=== PATIENT | female | born 1995 | race Caucasian/White ===

== ENCOUNTER 2020-07-09 14:15 | Outpatient (CLI) | payer BC, SELFPAY ==
[2020-07-09 15:44] LABS: Basophils Percent Auto 0.4 % (0.2-1.2); Eosinophils Absolute Auto 0.1 K/mm3 (0-0.3); Eosinophils Percent Auto 1.4 % (0-4.4); Hematocrit 34.3 % (37.0-47.0); Hemoglobin 11.5 g/dL (12.0-15.0); Immature Granulocyte Absolute 0.08 K/mm3 (0.00-0.031); Immature Granulocyte Percent A 0.8 % (0-0.5); Lymphocytes Absolute Auto 1.82 K/mm3 (0.9-3.2); Lymphocytes Percent Auto 18.1 % (18.3-44.2); Mean Corpuscular HGB Conc 33.5 g/dl (32-36); Mean Corpuscular Hemoglobin 29.3 pg (26-34); Mean Corpuscular Volume 87.3 fl (80-100); Mean Platelet Volume 11.2 fl (7.4-10.4); Monocytes Absolute Auto 0.7 K/mm3 (0.1-0.6); Monocytes Percent Auto 6.9 % (2.6-8.5); Neutrophils Absolute Auto 7.3 K/mm3 (1.3-6.7); Neutrophils Percent Auto 72.4 % (45.5-73.1); Platelet Count Result 288 k/mm3 (150-375); Red Blood Count 3.93 M/mm3 (4.2-5.4); Red Cell Distribution Width 13.2 % (11.5-14.5); White Blood Count 10.1 K/mm3 (4.5-10.0)
[2020-07-09 15:53] LABS: Glucose 1 Hour PP 50gm Dose 86 mg/dL
[2020-07-09 16:34] LABS: HIV 1/2 Ab P24 Ag Result Negative (Negative)
== END 2020-07-09 14:16 | disposition home or self-care (01) ==
LOC: ANHLAB 14:19
PROVIDERS: Visit Provider Obstetrics & Gynecology
DX: Z34.92 Encounter for supervision of normal pregnancy, unspecified, second trimester (principal)
CPT/HCPCS: 36415; 82947; 85025; 86703; G0432

== ENCOUNTER 2020-08-10 13:45 | Outpatient (CLI) | payer BC, SELFPAY ==
[2020-08-10 15:46] LABS: Hepatitis B Surface Antigen Negative (Negative); Rubella IgG Antibody 93.9 IU/ML
[2020-08-11 10:54] LABS: Rapid Plasma Reagin Non-Reactive (NonReactive)
[2020-08-13 11:13] LABS: CMV IgG Antibody <0.60 U/mL (<0.60)
[2020-08-13 14:10] LABS: Varicella IgM Antibody <=0.90 (<=0.90)
== END 2020-08-10 13:46 | disposition home or self-care (01) ==
LOC: ANHLAB 13:47
PROVIDERS: Visit Provider Obstetrics & Gynecology
DX: Z34.93 Encounter for supervision of normal pregnancy, unspecified, third trimester (principal); Z3A.00 Weeks of gestation of pregnancy not specified
CPT/HCPCS: 36415; 85461; 86592; 86644; 86747; 86762; 86787; 87086; 87340

== ENCOUNTER 2020-09-07 23:56 | Inpatient (IN) | payer BC, SELFPAY ==
[2020-09-08] VITALS (34 sets, daily range): BP systolic 94–136; BP diastolic 67–89; PULSE 62–114; RESP 16–18; TEMP 36.7–37.2; O2SAT 99–100; BMI 29.3
--- NOTE | 2020-09-08 00:47 | LDADM ---
This patient, Delia Aranda, was admitted to Labor/Delivery/Recovery 106 on 09/07/20 at 23:56. Plans for labor, pain management and were discussed with patient. Patient/family oriented to hospital policies and general routines including ID bracelet, bed and alarms, visiting hours, pain management, procedures, bathroom and other care routines, personal items, smoking policy, room service/diet and guest tray routines, security routines, and visiting hours. Patient/Family are encouraged to report perceived risks to care and to ask questions if they do not understand what they are told or what they should do. See OBIX for further documentation.
--- NOTE | 2020-09-08 00:49 | WPDANESEPP ---
Anes - Eval Pre Procedure Procedure: Labor epidural Date/Time: 09/08/20 00:49 Surgeon: Trell Preop Diagnosis: Abd pain with contractions Pre Op Diagnosis: Ctx Patient Data Age: 24 Gender: F Height: Weight: Last Vital Signs Pulse 80 09/08/20 00:31 BP 121/89 09/08/20 00:31 Allergies Allergy/AdvReac Type Severity Reaction Status Date / Time No Known Allergies Allergy Verified 08/31/20 15:38 Home Medications Medication Instructions Recorded Confirmed Type PNV cmb#95-ferrous fumarate-FA 1 tablet PO DAILY 08/31/20 08/31/20 History [] Laboratory Tests 09/08/20 09/08/20 00:28 00:28 WBC Pending RBC Pending Hgb Pending Hct Pending MCV Pending MCH Pending MCHC Pending RDW Pending Plt Count Pending MPV Pending Immature Gran % (Auto) Pending Neut % (Auto) Pending Lymph % (Auto) Pending [place] % (Auto) Pending Eos % (Auto) Pending Baso % (Auto) Pending Lymph # (Auto) Pending [place] # (Auto) Pending Eos # (Auto) Pending Baso # (Auto) Pending Abs Immat Gran (auto) Pending Absolute Neuts (auto) Pending Absolute Nucleated RBC Pending Nucleated RBC % Pending RPR Pending Patient hx anesthesia problems: none Family hx anesthesia problems: none PMFSH Past Medical History Medical History (Updated 09/08/20 @ 00:50 by Taurus Whalen CRNA) Overweight (BMI 25.0-29.9) and not yet delivered Family History Family History Other No pertinent family history Social History Social History Substance use: never Gender identity (if verbalized by the patient): Female Spiritual care concerns: No Exam Day of Procedure 09/08/20 00:49 Patient weight: overweight Airway: Mallampati scale Neurological: alert and oriented
[2020-09-08] MEDS: LACTATED RINGERS 1,000 ML 125 ML IV CONT (00:50)
[2020-09-08 01:07] LABS: Basophils Percent Auto 0.4 % (0.2-1.2); Eosinophils Absolute Auto 0.1 K/mm3 (0-0.3); Eosinophils Percent Auto 1.1 % (0-4.4); Hematocrit 33.1 % (37.0-47.0); Hemoglobin 10.7 g/dL (12.0-15.0); Immature Granulocyte Absolute 0.05 K/mm3 (0.00-0.031); Immature Granulocyte Percent A 0.4 % (0-0.5); Lymphocytes Absolute Auto 2.66 K/mm3 (0.9-3.2); Lymphocytes Percent Auto 23.5 % (18.3-44.2); Mean Corpuscular HGB Conc 32.3 g/dl (32-36); Mean Corpuscular Hemoglobin 25.6 pg (26-34); Mean Corpuscular Volume 79.2 fl (80-100); Mean Platelet Volume 12.6 fl (7.4-10.4); Monocytes Absolute Auto 0.7 K/mm3 (0.1-0.6); Monocytes Percent Auto 6.5 % (2.6-8.5); Neutrophils Absolute Auto 7.7 K/mm3 (1.3-6.7); Neutrophils Percent Auto 68.1 % (45.5-73.1); Platelet Count Result 258 k/mm3 (150-375); Red Blood Count 4.18 M/mm3 (4.2-5.4); White Blood Count 11.3 K/mm3 (4.5-10.0)
[2020-09-08] MEDS: OXYTOCIN 30 UNITS/NS 500 ML 30 UNITS/500 ML BAG 999 UNITS IV CONT (01:40)
--- NOTE | 2020-09-08 01:58 | PM.IMHP ---
H&P: HPI History of Present Illness Date/Time: 09/08/20 01:58 Chief complaint: Ctx Narrative: Delia Aranda is a 24 yo @ 37.1wks (BRODY 09/28/20) who presented in active labor; found to be 5cm desiring epidural. After epidural, rapidly progressed from 8 to complete. Her is complicated by: - Short interval ; last delivery 09/2019 Review of Systems Constitutional: Constitutional: Denies chills and Denies fever(s) Eyes: Eyes: Denies blurry vision Cardiovascular: Cardiovascular: Denies chest pain and Denies rapid heart rate Respiratory: Respiratory: Denies cough and Denies dyspnea Gastrointestinal: Gastrointestinal: Reports abdominal pain, Denies nausea and Denies vomiting Genitourinary: Genitourinary: Denies vaginal discharge Neurologic: Denies headache(s) Psychiatric: Psychiatric: Denies anxiety and Denies depression [facility], [facility] Past Medical History Medical History Overweight (BMI 25.0-29.9) and not yet delivered Family History Family History Other No pertinent family history Social History Social History Smoking status: Never smoker Substance use: never Gender identity (if verbalized by the patient): Female Spiritual care concerns: No Meds Home Medications and Allergies Home Medications Medication Instructions Recorded Confirmed Type PNV cmb#95-ferrous fumarate-FA 1 tablet PO DAILY 08/31/20 09/08/20 History [] Allergies Allergy/AdvReac Type Severity Reaction Status Date / Time No Known Allergies Allergy Verified 08/31/20 15:38 Vital Signs Vital Signs - 24 hr 09/08/20 00:16 09/08/20 00:31 09/08/20 00:53 Pulse Rate 92 80 Blood Pressure 120/72 121/89 Pulse Oximetry 99 09/08/20 00:54 09/08/20 00:56 09/08/20 00:58 Pulse Rate 101 H 93 85 Blood Pressure 118/87 128/82 117/82 Pulse Oximetry 100 09/08/20 00:59 09/08/20 01:01 09/08/20 01:03 Pulse Rate 94 98 98 Blood Pressure 119/77 122/78 125/78 Pulse Oximetry 100 09/08/20 01:06 09/08/20 01:07 09/08/20 01:08 Pulse Rate 92 88 90 Blood Pressure 121/75 118/71 116/68 Pulse Oximetry 99 09/08/20 01:11 09/08/20 01:13 09/08/20 01:16 Pulse Rate 86 81 87 Blood Pressure 122/78 123/82 123/77 Pulse Oximetry 99 09/08/20 01:18 09/08/20 01:23 09/08/20 01:26 Pulse Rate 84 114 H Blood Pressure 132/85 136/75 Pulse Oximetry 100 100 09/08/20 01:28 09/08/20 01:31 09/08/20 01:33 Pulse Rate 110 H 75 Blood Pressure 127/72 94/70 L Pulse Oximetry 100 100 09/08/20 01:46 Pulse Rate 106 H Blood Pressure 109/67 Pulse Oximetry Exam Const: General: cooperative and acute distress (with contractions) moderate Resp: Effort & Inspection: normal respiratory effort and able to speak in complete sentences Cardio: Rhythm: regular rhythm GI: Inspection: non-distended GI Palp: No abdominal tenderness and Yes Soft to palpation : Other: FHT's: 140's/mod filippo/ + accels/ occasional variable decel - cat 2 TOCO: ctx's q 2-3min Membranes: SROM, clear 0120 Cervix: 5/80/-3 --> 8/C/0 Postion: cephalic Skin: General skin exam: normal color Neuro: General: patient oriented x3 Extrem: General: normal to inspection Psych: Appearance: grossly normal Affect: normal affect Attitude: cooperative H&P: Results Labs Labs: Short CBC 09/08/20 Range/Units 00:28 WBC 11.3 H (4.5-10.0) K/mm3 Hgb 10.7 L (12.0-15.0) g/dL Hct 33.1 L (37.0-47.0) % Plt Count 258 (150-375) k/mm3 Assessment and Plan Assessment and plan (1) : Qualifiers: Weeks of gestation: 37 weeks Qualified Code(s): Z3A.37 - 37 weeks gestation of Code(s): Z34.90 - Encounter for supervision of normal , unspecified, unspecified trimester Status: Acute (2) A
--- NOTE | 2020-09-08 02:07 | WPDHPUPDATE1 ---
History and Physical Update Update Date/Time: 09/08/20 02:07 History and Physical has been reviewed, including an updated exam of the patient. There are NO changes in the patient's condition. Risks, benefits, and alternatives have been discussed and questions answered. Patient agrees to proceed with procedure.
--- NOTE | 2020-09-08 02:07 | PM.OBPRVD ---
OB - Delivery Note Procedure Delivery date: 09/08/20 Intrapartal events: None Induction method: none Delivery monitor: external FHT and external uterine Route of delivery: Laceration Description: Perineal - 1st Degree Delivery repair: vicryl Quantitative Blood Loss (ml): 150 Anesthesia type: Epidural Disposition: floor Narrative: After epidural placement patient voiced significant pressure and pain and was found to be 8 cm dilated. She rapidly progressed to complete dilation with desire to push. With her next contraction the patient gave one long, hard push and delivered the head and shoulders and body without complications. The infant was immediately placed skin to skin and had spontaneous cry. The umbilical cord was then clamped and cut. A segment of cord was collected for cord gases. The remaining cord blood was collected for typing. With Pitocin running and gentle downward traction on the cord, the placenta delivered without complications. Minimal bleeding and good uterine tone were noted. The vagina and perineum were examined and a first-degree perineal laceration was noted. The first-degree perineal laceration was repaired using 2-0 Vicryl using a [id number] stitch. Sponge, lap, needle, and instrument counts were correct at the end of the procedure. Mom and baby were left bonding skin to skin in a stable condition. Baby Date of : 09/08/20 Time of : 01:34 Weeks of gestation at delivery: 37 gender: Female Weight (pounds): 7 Weight (ounces): 5 presentation: vertex Placenta delivery description: Expressed score one minute: 9 score five minutes: 9
[2020-09-08] MEDS: OXYTOCIN 30 UNITS/NS 500 ML 30 UNITS/500 ML BAG 125 UNITS IV CONT (02:10)
[2020-09-08] MEDS: WITCH HAZEL 40 PADS 1 PAD TOPICAL (03:59)
[2020-09-08] MEDS: BENZOCAINE 20% AER SPR (*SP) 56 GM CAN 1 SPRAY TOPICAL (03:59)
--- NOTE | 2020-09-08 04:15 | OBPPTRN ---
Patient transferred to post room #286 via wheelchair. Support person present. Oriented to unit, room, information board, rooming in, admission packet and security measures. Patient verbalizes understanding. with patient.
[2020-09-08] MEDS: HYDROCORTISONE ACETATE 25 MG SUPPOSITORY RECTAL (10:41)
[2020-09-08] MEDS: DIBUCAINE 1% OINTMENT 30 GM TUBE 1 APPLIC TOPICAL (10:41)
[2020-09-08] MEDS: IBUPROFEN 600 MG TABLET PO ×2 (14:06→22:21)
[2020-09-08] MEDS: DOCUSATE SODIUM 100 MG CAPSULE PO (14:06)
[2020-09-09 03:15] LABS: Hematocrit 30.1 % (37.0-47.0); Hemoglobin 9.8 g/dL (12.0-15.0)
[2020-09-09 07:36] LABS: Rapid Plasma Reagin Non-Reactive (NonReactive)
--- NOTE | 2020-09-09 07:47 | PM.OBPNVD ---
OB - PN: Subj Subjective Date/time seen: 09/09/20 07:47 PPD#1 Delia is a 24yo now P2002 s/p who reports doing well today. She reports her bleeding is light and her pain is tolerable. Denies issues w/ hemorrhoids. She is tolerating regular diet. She is voiding and passing gas. She is ambulating w/o signs of anemia. She denies fever, chills, CP, SOB, POON, vision changes, N/V, dizziness or palpitations. She is bottle feeding. She reports her daughter failed the hearing test twice. OB - PN: Obj Data Labs CBC & Chem 7: 09/09/20 03:07 Labs: Laboratory Results - last 24 hr 09/08/20 09/09/20 00:28 03:07 Hgb 9.8 L Hct 30.1 L RPR Non-reactive OB - PN A/P Assessment and Plan (1) Normal vaginal delivery of second : Code(s): O80 - Encounter for full-term uncomplicated delivery Status: Acute Plan day: 1 Plan: routine care and discharge home (today) Comments: - F/u in 4 weeks - ER return precautions discussed: n/v/abd pain, fever, bleeding, htn - Pelvic rest, take meds as prescribed Time Spent With Patient Time: Total time spent is greater than 50% in coordination of care (as documented) at patient's floor/unit and/or counseling patient: Review of Systems Review of Systems: All systems reviewed & are unremarkable except as noted in HPI and below (HPI) Exam Const: General: cooperative, healthy appearing, comfortable and no acute distress Resp: Effort & Inspection: normal respiratory effort Auscultation: clear to auscultation bilaterally Cardio: Rate: regular rate GI: Inspection: non-distended GI Palp: No abdominal tenderness and Yes Soft to palpation Auscultation: normal bowel sounds : Other: fundus firm below umbilicus Skin: General skin exam: normal color Neuro: General: patient oriented x3 Extrem: General: normal to inspection Psych: Appearance: grossly normal Affect: normal affect Attitude: cooperative
--- NOTE | 2020-09-09 07:55 | PM.OBDSVD ---
DS: Admitting Diagnosis Admitting Diagnosis Admitting Diagnosis: Active labor DS: Discharge Diagnosis Discharge Diagnosis (1) Normal vaginal delivery of second : Code(s): O80 - Encounter for full-term uncomplicated delivery Status: Acute OB - DS: Summary OB Procedures : Ultrasound OB Procedures Intrapartum: Spontaneous Vag Delivery OB Procedures: : None Peripartum Data Infant Delivery Method: Natural Vaginal Laceration Description: Perineal - 1st Degree complications: none Chrisman 1: Gender: Female Disposition of : home Status at Discharge Functional status at discharge: independent ambulation Overall status at discharge: patient is back to baseline Time Spent with Patient Time attestation: Total time spent providing and/or coordinating discharge services: Time spent: Less than 30 minutes Exam Const: General: cooperative, healthy appearing, comfortable and no acute distress Resp: Effort & Inspection: normal respiratory effort Auscultation: clear to auscultation bilaterally Cardio: Rate: regular rate GI: Inspection: normal to inspection GI Palp: Yes Soft to palpation and No Tenderness to palpation present (GI) Auscultation: normal bowel sounds : Other: fundus firm below umbilicus Skin: General skin exam: normal color Neuro: General: patient oriented x3 Extrem: General: normal to inspection Psych: Appearance: grossly normal Affect: normal affect DS: Data Data Completed and Pending Labs on day of discharge: Labs from last 24 hours 09/09/20 09/08/20 03:07 00:28 Hgb 9.8 L Hct 30.1 L RPR Non-reactive Discharge Plan Discharge Attending physician on discharge: Marlena Cai Discharging Clinician: Marlena Cai Anticipated Discharge Date/Time: 09/09/20 08:00 Patient Disposition: Home, Self-Care Activity: pelvic rest Diet: regular Patient Instructions: Antibiotic Form Stand Alone Forms: General Discharge Information Follow-up/Referrals: Marlena Cai MD [Physician] - 4 Weeks Discharge Medications: New polysaccharide iron complex 150 mg iron Capsule 150 mg PO BIDWM 30 Days Qty: 60 RF: 0 acetaminophen [Mapap (acetaminophen)] 325 mg Tablet 650 mg PO Q6H PRN (Reason: Mild Pain (1-3) Or Headache) 10 Days Qty: 60 RF: 0 docusate sodium 100 mg Capsule 100 mg PO BID PRN (Reason: Constipation) 30 Days Qty: 60 RF: 0 ibuprofen 600 mg Tablet 600 mg PO Q6H PRN (Reason: Cramping) 10 Days Qty: 30 RF: 0 hydrocortisone acetate [Anusol-HC] 25 mg Suppository 25 mg WA Q12HR 7 Days Qty: 14 RF: 0 Continued PNV cmb#95-ferrous fumarate-FA [] 28 mg iron- 800 mcg Tablet 1 tablet PO DAILY 30 Days Qty: 30 RF: 0 Date of admission: 09/07/20 23:56 Primary Care Provider: PHYSICIAN,DETONATOR ASSEMBLER Admitting Provider: Marlena Cai Attending physician on admission: Marlena Cai Condition: Stable
[2020-09-09 08:00] VITALS: BP 115/81; PULSE 69; RESP 18; TEMP 37.1
[2020-09-10 11:04] VITALS: BP 123/89; PULSE 80; RESP 20; TEMP 36.8; O2SAT 100
== END 2020-09-09 10:15 | disposition home or self-care (01) | DRG 807 ==
LOC: ANHLDR 09-08 01:53 → ANHOB2 09-08 04:16
PROVIDERS: Admitting Provider Obstetrics & Gynecology; Visit Provider Obstetrics & Gynecology
DX: O62.3 Precipitate labor (principal); Z37.0 Single live birth; O70.0 First degree perineal laceration during delivery; Z3A.37 37 weeks gestation of pregnancy
CPT/HCPCS: 36415; 85014; 85018; 85025; 86592; 86850; 86900; 86901; A9270; J2590; J2795; J7120

== ENCOUNTER 2021-12-26 10:41 | Observation (INO) | payer OTHER, SELFPAY ==
[2021-12-26 11:00] VITALS: BMI 25.7
[2021-12-26 11:11] VITALS: BP 105/56; PULSE 91
[2021-12-26 11:46] LABS: Basophils Percent Auto 0.1 % (0.2-1.2); Eosinophils Percent Auto 0.4 % (0-4.4); Hematocrit 35.1 % (37.0-47.0); Hemoglobin 12.3 g/dL (12.0-15.0); Immature Granulocyte Absolute 0.05 K/mm3 (0.00-0.031); Immature Granulocyte Percent A 0.6 % (0-0.5); Lymphocytes Absolute Auto 0.58 K/mm3 (0.9-3.2); Lymphocytes Percent Auto 6.9 % (18.3-44.2); Mean Corpuscular Hemoglobin 30.1 pg (26-34); Mean Platelet Volume 11.1 fl (7.4-10.4); Monocytes Absolute Auto 0.5 K/mm3 (0.1-0.6); Monocytes Percent Auto 6.2 % (2.6-8.5); Neutrophils Absolute Auto 7.3 K/mm3 (1.3-6.7); Neutrophils Percent Auto 85.8 % (45.5-73.1); Platelet Count Result 246 k/mm3 (150-375); Red Blood Count 4.08 M/mm3 (4.2-5.4); Red Cell Distribution Width 13.3 % (11.5-14.5); White Blood Count 8.5 K/mm3 (4.5-10.0)
[2021-12-26 11:57] LABS: Alanine Aminotransferase 25 U/L (4-35); Albumin Level 3.6 g/dL (3.5-5.1); Alkaline Phosphatase 84 U/L (38-126); Anion Gap 7 mmol/L (8-16); Aspartate Amino Transferase 32 U/L (14-36); Bilirubin,Total 0.3 mg/dL (0.2-1.3); Blood Urea Nitrogen 7 mg/dL (7-17); Calcium 8.1 mg/dL (8.4-10.2); Carbon Dioxide 20 mmol/L (22-30); Chloride 104 mmol/L (98-107); Estimated Glomerular Filt Rate > 60; Glucose 85 mg/dL (65-110); Potassium 3.5 mmol/L (3.4-5.0); Sodium 131 mmol/L (137-145)
--- NOTE | 2021-12-26 12:05 | P.PNOB_ITS ---
OB - Triage/Final Diagnosis Visit Information Date of evaluation: 12/26/21 Reason for evaluation: other (hyperemesis ) Comments/Additional reasons for admission: I have assessed the risk for this patient, Delia Aranda, and determined that she would benefit from observation care. Evaluation Laboratory results: Laboratory Tests 12/26/21 12/26/21 11:41 11:41 WBC 8.5 RBC 4.08 L Hgb 12.3 Hct 35.1 L MCV 86.0 MCH 30.1 MCHC 35.0 RDW 13.3 Plt Count 246 MPV 11.1 H Immature Gran % (Auto) 0.6 H Neut % (Auto) 85.8 H Lymph % (Auto) 6.9 L [place] % (Auto) 6.2 Eos % (Auto) 0.4 Baso % (Auto) 0.1 L Lymph # (Auto) 0.58 L [place] # (Auto) 0.5 Eos # (Auto) 0.0 Baso # (Auto) 0.0 Abs Immat Gran (auto) 0.05 H Absolute Neuts (auto) 7.3 H Absolute Nucleated RBC 0.0 Nucleated RBC % 0.0 Sodium 131 L Potassium 3.5 Chloride 104 Carbon Dioxide 20 L Anion Gap 7 L BUN 7 Creatinine 0.40 L Estim Creat Clear Calc Not Reportable Estimated GFR > 60 Glucose 85 Calcium 8.1 L Total Bilirubin 0.3 AST 32 ALT 25 Alkaline Phosphatase 84 Total Protein 7.0 Albumin 3.6 Vital signs: Vital Signs - 24 hr 12/26/21 11:11 Pulse Rate 91 Blood Pressure 105/56 L
[2021-12-26] MEDS: ONDANSETRON INJ 4 MG/2 ML VIAL IV PUSH (12:32)
[2021-12-26] MEDS: THIAMINE HCL INJ 100 MG, FOLIC ACID INJ 1 MG, MULTIVITAMINS-12 INJ VIAL 1 5 ML, MULTIVI... IV CONT (12:48)
[2021-12-26] MEDS: diphenhydrAMINE HCl INJ 50 MG/ML VIAL 25 MG IV PUSH (12:55)
[2021-12-26] MEDS: DEXTROSE 5%/LACTATED RINGERS 1,000 ML 200 ML IV CONT (13:10)
--- NOTE | 2021-12-26 17:00 | PC.NURSE ---
Pt states she is feeling better. States she feels comfortable being discharged.
== END 2021-12-26 17:05 | disposition home or self-care (01) ==
PROVIDERS: Admitting Provider Student in an Organized Health Care Education/Training Program; Visit Provider Student in an Organized Health Care Education/Training Program
DX: O21.9 Vomiting of pregnancy, unspecified (principal); Z3A.00 Weeks of gestation of pregnancy not specified
CPT/HCPCS: 36415; 80053; 85025; 96374; 96375; G0378; G0379; J1200; J2405; J3411; J3475; J7121

== ENCOUNTER 2022-03-04 08:46 | Emergency (ER) | payer OTHER, SELFPAY ==
[2022-03-04] VITALS (7 sets, daily range): BP systolic 97–108; BP diastolic 61–74; PULSE 105–127; RESP 15–24; TEMP 36.3–37.5; O2SAT 96–100
--- NOTE | ~2022-03-04 | NM_ITS ---
EXAMINATION: NM pulmonary perfusion DATE: 03/04/2022 12:32 INDICATION: Shortness of breath. TECHNIQUE: 3.5 mCi Tc-99m MAA was administered intravenously for perfusion images. Scintigraphic sandeep ges of the chest were obtained. COMPARISON: Chest single view 03/04/2022 FINDINGS: Perfusion images show no perfusion defect. IMPRESSION: 1. Normal perfusion. Pulmonary embolism absent. Reviewed, dictated and finalized at location A.
--- NOTE | ~2022-03-04 | US_ITS ---
EXAMINATION: US venous doppler [facility] DATE: 03/04/2022 12:07 INDICATION: Shortness of breath, bilateral lower limb swelling TECHNIQUE: Melara scale images without and with compression and Doppler images of the bilateral lower e xtremity veins were obtained. COMPARISON: None FINDINGS: The right common femoral vein, profunda femoral vein, femoral vein, popliteal vein, peroneal trunk, p osterior tibial veins, and greater saphenous vein are patent. The left common femoral vein, profunda femoral vein, femoral vein, popliteal vein, peroneal trunk, po sterior tibial veins, and greater saphenous vein are patent. IMPRESSION: 1. Patent bilateral lower extremity veins. No evidence of deep venous thrombosis. Reviewed, dictated and finalized at location A. IMPRESSION: 1. Patent bilateral lower extremity veins. No evidence of deep venous thrombosi s.
--- NOTE | ~2022-03-04 | XR_ITS ---
EXAMINATION: XR chest 1V portable 03/04/2022 09:47 INDICATION: Cough, shortness of breath and fever PROCEDURE: AP portable chest COMPARISON: No prior studies for comparison. FINDINGS: The lungs are clear. The cardiomediastinal silhouette is within normal limits. There are no pleural effusions. There is no pneumothorax suspected. IMPRESSION: 1: NO ACUTE CARDIOPULMONARY DISEASE. Reviewed, dictated and finalized at location B.
--- NOTE | 2022-03-04 09:00 | ECG_ITS ---
Measurements Intervals [place] Rate: 124 P: 30 VT: 141 QRS: 15 QRSD: 87 T: -5 QT: 289 QTc: 415 Interpretive Statements SINUS TACHYCARDIA OTHERWISE NORMAL ECG ABNORMAL RHYTHM ECG NO PREVIOUS ECG AVAILABLE FOR COMPARISON Electronically Signed On 03-04-2022 14:10:31 CDT by Hector Moralez M.D.
--- NOTE | 2022-03-04 09:04 | ED.FEVER ---
HPI - Fever General Chief Complaint: Fever Stated Complaint: Fever Time Seen by Provider: 03/04/22 08:50 Source: patient, RN notes reviewed and old records reviewed Mode of arrival: ambulatory Limitations: no limitations History of Present Illness HPI Narrative: This is a 26 year old female approximately 32 weeks GA who presents for evaluation of a fever. She starting having fever and sore throat 2 days ago. She reports throat pain worse with coughing and breathing. Her fever has been as high as 102 F and today she reports it was 101 F. She last took Tylenol last night at 10 pm, and she reports she took 1 tablet. She reports coughing makes her have emesis, and she has lower abdominal pain with coughing or movement. She also reports shortness of breath today that made it difficult for her to get dressed. Denies history of DVT/PE. She reports one of her daughters had URI symptoms on Monday but she tested negative for covid. Related Data Allergies Allergy/AdvReac Type Severity Reaction Status Date / Time banana bag Allergy Swelling Uncoded 03/04/22 08:51 of Lip/Tongue/Throat Review of Systems Review of Systems: All systems reviewed & are unremarkable except as noted in HPI and below Constitutional: Constitutional: Reports chills and Reports fever(s) ENT: Denies nasal congestion and Reports sore throat Cardiovascular: Cardiovascular: Denies chest pain Respiratory: Respiratory: Reports chest congestion, Reports cough and Reports dyspnea Gastrointestinal: Gastrointestinal: Reports abdominal pain, Reports nausea and Reports vomiting Genitourinary: Genitourinary: Reports nocturia and Reports pelvic pain Musculoskeletal: Musculoskeletal: Reports back pain PMFSH Past Medical History Medical History Overweight (BMI 25.0-29.9) and not yet delivered Family History Family History Other No pertinent family history Social History Social History Smoking status: Never smoker Substance use: never Gender identity (if verbalized by the patient): Female Spiritual care concerns: No Exam Const: General: no acute distress and ill appearing Nutritional Appearance: well nourished Orientation/consciousness: patient oriented x3 Limitations: no limitations HENMT: Head: normal to inspection Ears: external ears normal and TM's normal bilaterally General nose exam: Normal external nose present Face and sinus: normal facial exam Mouth: Yes Normal oral and palatal mucosa present, Yes lip normal and Yes moist mucous membranes Throat: posterior oropharynx normal and uvula midline Eyes: Conjunctivae: conjunctivae normal Pupils: Equal, round and reactive pupils present EOM: EOMs intact bilaterally Neck: Neck: normal visual inspection Chest: Chest palpation & inspection: normal inspection of the chest Resp: Effort & Inspection: normal respiratory effort, not labored, no retractions, not tachypneic and no use of accessory muscles Auscultation: clear to auscultation bilaterally and no crackles Cardio: Rate: tachycardic Rhythm: regular rhythm Heart sounds: no murmurs GI: GI Palp: Yes Soft to palpation, No Tenderness to palpation present (GI), No Guarding due to palpation present (GI) and No Rigid due to palpation Auscultation: normal bowel sounds Other: gravid Back/Spine/Pelvis: Back: no CVA tenderness Skin: General skin exam: normal color Rashes: no rashes Neuro: General: patient oriented x3, moves all extremities and CN's II-XI intact bilaterally Extrem: General: normal to inspection Psych: Appearance: grossly normal Mental Status: mental status grossly normal Affect: normal affect Course Reevaluation(s) Reevaluation #1: Patient's heart rate has improved with 3 L IVF. Heart rate is 101 with blood pres
[2022-03-04] MEDS: LACTATED RINGERS 1,000 ML 999 ML IV CONT ×2 (09:34→11:17)
[2022-03-04 09:44] LABS: Appearance Urine Cloudy (Clear); Bilirubin Urine 1+ (Negative); Blood Urine Negative (Negative); Color Urine Yellow (Yellow); Glucose Urine UA Negative (Negative); Ketones Urine 2+ mg/dL (Negative); Leukocyte Esterase Ur 1+ LEU/UL (Negative); Nitrate Urine Negative (Negative); Protein Urine 1+ mg/dL (Negative); Specific Grav Ur >= 1.030 (1.001-1.035); pH Urine 5.5 (5.0-9.0)
[2022-03-04 09:48] LABS: Basophils Percent Auto 0.2 % (0.2-1.2); Eosinophils Percent Auto 0.2 % (0-4.4); Hemoglobin 10.7 g/dL (12.0-15.0); Immature Granulocyte Absolute 0.08 K/mm3 (0.00-0.031); Immature Granulocyte Percent A 0.7 % (0-0.5); Lymphocytes Absolute Auto 0.74 K/mm3 (0.9-3.2); Lymphocytes Percent Auto 6.8 % (18.3-44.2); Mean Corpuscular HGB Conc 32.4 g/dl (32-36); Mean Corpuscular Hemoglobin 27.4 pg (26-34); Mean Corpuscular Volume 84.6 fl (80-100); Mean Platelet Volume 11.7 fl (7.4-10.4); Monocytes Absolute Auto 0.9 K/mm3 (0.1-0.6); Monocytes Percent Auto 7.9 % (2.6-8.5); Neutrophils Absolute Auto 9.1 K/mm3 (1.3-6.7); Neutrophils Percent Auto 84.2 % (45.5-73.1); Platelet Count Result 267 k/mm3 (150-375); Red Cell Distribution Width 14.3 % (11.5-14.5); White Blood Count 10.9 K/mm3 (4.5-10.0)
[2022-03-04 09:54] LABS: Bacteria Urine Trace /hpf; Mucus Urine Few /lpf; Squamous Epithelial Cell Urine Many /hpf (Few); WBC Urine >75 /hpf
[2022-03-04 09:55] LABS: Lactic Acid Reflex 0.8 mmol/L (0.7-2.0)
[2022-03-04 09:56] LABS: Add Urine Microscopic? YES
[2022-03-04 09:58] LABS: Partial Thromboplastin Time 27.9 SECONDS (22.3-36.8); Prothrombin Time 12.6 Seconds (11.1-14.7)
[2022-03-04 10:09] LABS: Alanine Aminotransferase 44 U/L (6-35); Albumin Level 3.5 g/dL (3.5-5.1); Alkaline Phosphatase 165 U/L (38-126); Anion Gap 6 mmol/L (8-16); Aspartate Amino Transferase 50 U/L (14-36); Bilirubin,Total 0.7 mg/dL (0.2-1.3); Blood Urea Nitrogen 8 mg/dL (7-17); CRP 1.9 mg/dL (<1.0); Calcium 8.1 mg/dL (8.4-10.2); Carbon Dioxide 20 mmol/L (22-30); Chloride 104 mmol/L (98-107); Estimated CRCL calculation 157 ml/min; Estimated Glomerular Filt Rate > 60; Glucose 84 mg/dL (65-110); Potassium 4.3 mmol/L (3.4-5.0); Sodium 130 mmol/L (137-145)
[2022-03-04 10:21] LABS: Influenza A QL RT-PCR Positive (Negative); Influenza B QL RT-PCR Negative (Negative); SARS-CoV-2 RNA PCR Negative
[2022-03-04] MEDS: DEXTROSE 5%/LACTATED RINGERS 1,000 ML 1000 ML IV CONT (10:25)
== END 2022-03-04 13:29 | disposition home or self-care (01) ==
PROVIDERS: Emergency Provider General Practice
DX: O99.513 Diseases of the respiratory system complicating pregnancy, third trimester (principal); J10.1 Influenza due to other identified influenza virus with other respiratory manifestations; O99.283 Endocrine, nutritional and metabolic diseases complicating pregnancy, third trimester; E86.0 Dehydration; O99.891 Other specified diseases and conditions complicating pregnancy; R00.0 Tachycardia, unspecified; R82.81 Pyuria; Z3A.32 32 weeks gestation of pregnancy; Z20.822 Contact with and (suspected) exposure to COVID-19; R06.02 Shortness of breath
CPT/HCPCS: 36415; 71045; 78580; 80053; 81001; 83605; 85025; 85610; 85730; 86140; 87040; 87081; 87086; 87088; 87147; 87181; 87186; 87502; 87880; 93005; 93970; 96361; 96365; 96375; 99284; A9540; C9803; J0131; J7120; J7121; U0003; U0005

== ENCOUNTER 2022-04-01 19:39 | Inpatient (IN) | payer OTHER, SELFPAY ==
[2022-04-01] VITALS (64 sets, daily range): BP systolic 97–132; BP diastolic 56–95; PULSE 76–123; TEMP 36.7; O2SAT 99–100; BMI 27.9
[2022-04-01] MEDS: AMPICILLIN 2 GM/NS 100 ML 2 GM/100 ML BAG IVPB (20:18)
[2022-04-01] MEDS: LACTATED RINGERS 1,000 ML 125 ML IV CONT ×2 (20:19→21:11)
[2022-04-01 20:26] LABS: Basophils Percent Auto 0.2 % (0.2-1.2); Eosinophils Absolute Auto 0.1 K/mm3 (0-0.3); Eosinophils Percent Auto 0.8 % (0-4.4); Hemoglobin 12.2 g/dL (12.0-15.0); Immature Granulocyte Absolute 0.05 K/mm3 (0.00-0.031); Immature Granulocyte Percent A 0.4 % (0-0.5); Lymphocytes Absolute Auto 2.76 K/mm3 (0.9-3.2); Lymphocytes Percent Auto 20.4 % (18.3-44.2); Mean Corpuscular Hemoglobin 26.3 pg (26-34); Mean Corpuscular Volume 79.7 fl (80-100); Mean Platelet Volume 12.3 fl (7.4-10.4); Monocytes Percent Auto 7.2 % (2.6-8.5); Neutrophils Absolute Auto 9.6 K/mm3 (1.3-6.7); Platelet Count Result 277 k/mm3 (150-375); Red Blood Count 4.64 M/mm3 (4.2-5.4); Red Cell Distribution Width 14.9 % (11.5-14.5); White Blood Count 13.5 K/mm3 (4.5-10.0)
--- NOTE | 2022-04-01 20:50 | WPDANESEPP ---
Anes - Eval Pre Procedure Procedure: labor epidural Date/Time: 04/01/22 20:50 Surgeon: floyd Pre Op Diagnosis: contractions Patient Data Age: 26 Gender: F Height: 1.7 m Weight: 81 kg Last Vital Signs Pulse 107 H 04/01/22 20:45 BP 125/95 H 04/01/22 20:45 Allergies Allergy/AdvReac Type Severity Reaction Status Date / Time banana bag Allergy Swelling Uncoded 04/01/22 20:10 of Lip/Tongue/Throat Home Medications Medication Instructions Recorded Confirmed Type acetaminophen 325 mg tablet (Mapap 650 mg PO Q6H PRN Mild Pain (1-3) 09/09/20 Rx (acetaminophen)) Or Headache 10 days #60 tabs vit no.95-ferrous 1 tablet PO DAILY 30 days #30 tabs 09/09/20 12/26/21 Rx fumarate 28 mg-folic acid 800 mcg tablet () cephalexin 500 mg capsule 500 mg PO Q12H 7 days #14 caps 03/04/22 Rx oseltamivir 75 mg capsule (Tamiflu) 75 mg PO Q12H 5 days #10 caps 03/04/22 Rx Laboratory Tests 04/01/22 04/01/22 20:19 20:19 WBC 13.5 K/mm3 H K/mm3 (4.5-10.0) RBC 4.64 M/mm3 M/mm3 (4.2-5.4) Hgb 12.2 g/dL g/dL (12.0-15.0) Hct 37.0 % % (37.0-47.0) MCV 79.7 fl L fl (80-100) MCH 26.3 pg pg (26-34) MCHC 33.0 g/dl g/dl (32-36) RDW 14.9 % H % (11.5-14.5) Plt Count 277 k/mm3 k/mm3 (150-375) MPV 12.3 fl H fl (7.4-10.4) Immature Gran % (Auto) 0.4 % % (0-0.5) Neut % (Auto) 71.0 % % (45.5-73.1) Lymph % (Auto) 20.4 % % (18.3-44.2) [place] % (Auto) 7.2 % % (2.6-8.5) Eos % (Auto) 0.8 % % (0-4.4) Baso % (Auto) 0.2 % % (0.2-1.2) Lymph # (Auto) 2.76 K/mm3 K/mm3 (0.9-3.2) [place] # (Auto) 1.0 K/mm3 H K/mm3 (0.1-0.6) Eos # (Auto) 0.1 K/mm3 K/mm3 (0-0.3) Baso # (Auto) 0.0 K/mm3 K/mm3 (0.0-0.1) Abs Immat Gran (auto) 0.05 K/mm3 H K/mm3 (0.00-0.031) Absolute Neuts (auto) 9.6 K/mm3 H K/mm3 (1.3-6.7) Absolute Nucleated RBC 0.0 K/mm3 K/mm3 (0.0-0.012) Nucleated RBC % 0.0 % % (0.0-0.2) RPR Pending Patient hx anesthesia problems: none Family hx anesthesia problems: none Results Review: All pre-operative results and documents have been reviewed as part of the pre-operative evaluation. [facility] Past Medical History Medical History Overweight (BMI 25.0-29.9) and not yet delivered Family History Family History Other No pertinent family history Social History Social History Smoking status: Never smoker Substance use: never Gender identity (if verbalized by the patient): Female Spiritual care concerns: No Exam Day of Procedure 04/01/22 20:50
[2022-04-02] VITALS (27 sets, daily range): BP systolic 96–151; BP diastolic 58–121; PULSE 61–164; RESP 16–18; TEMP 36.3–36.9; O2SAT 99–100
[2022-04-02] MEDS: AMPICILLIN 1 GM/NS 50 ML 1 GM/50 ML BAG IVPB (00:13)
[2022-04-02] MEDS: LACTATED RINGERS 1,000 ML 125 ML IV CONT (00:14)
[2022-04-02] MEDS: OXYTOCIN 30 UNITS/NS 500 ML 30 UNITS/500 ML BAG 999 UNITS IV CONT (00:42)
--- NOTE | 2022-04-02 00:53 | PM.OBPRVD ---
OB - Delivery Note Procedure Delivery date: 04/02/22 Induction method: None Delivery augmentation: Rupture of Membranes Delivery monitor: External FHT Route of delivery: Episiotomy description: None Laceration Description: None Quantitative Blood Loss (ml): 59 Anesthesia type: Epidural Disposition: Floor Complications: Petterchak x2 for group B strep status Baby Date of : 04/02/22 Time of : 00:42 Weeks of gestation at delivery: 36 gender: Male Weight (pounds): 7 Weight (ounces): 2 presentation: vertex position: Right Occiput Anterior Placenta delivery description: Spontaneous Cord Vessel Description: 3 Vessels score one minute: 8 score five minutes: 9
--- NOTE | 2022-04-02 00:55 | PM.IMHP ---
H&P: HPI History of Present Illness Date/Time: 04/02/22 00:55 Chief Complaint: labor Narrative: 3 para 2 states her EDC is 04/30/2022 needs [facility] Past Medical History Medical History Overweight (BMI 25.0-29.9) and not yet delivered Family History Family History Other No pertinent family history Social History Social History Smoking status: Never smoker Substance use: never Gender identity (if verbalized by the patient): Female Spiritual care concerns: No Meds Home Medications and Allergies Home Medications Medication Instructions Recorded Confirmed Type acetaminophen 325 mg tablet (Mapap 650 mg PO Q6H PRN Mild Pain (1-3) 09/09/20 04/01/22 Rx (acetaminophen)) Or Headache 10 days #60 tabs vit no.95-ferrous 1 tablet PO DAILY 30 days #30 tabs 09/09/20 04/01/22 Rx fumarate 28 mg-folic acid 800 mcg tablet () Allergies Allergy/AdvReac Type Severity Reaction Status Date / Time banana bag Allergy Swelling Uncoded 04/01/22 20:10 of Lip/Tongue/Throat Vital Signs Vital Signs - 24 hr 04/01/22 19:54 04/01/22 20:00 04/01/22 20:15 Temperature Pulse Rate 123 H 122 H 109 H Blood Pressure 124/76 124/78 125/86 Pulse Oximetry 04/01/22 20:30 04/01/22 20:45 04/01/22 20:54 Temperature Pulse Rate 106 H 107 H Blood Pressure 117/86 125/95 H Pulse Oximetry 99 04/01/22 20:59 04/01/22 21:04 04/01/22 21:06 Temperature Pulse Rate 115 H 111 H Blood Pressure 132/82 120/81 Pulse Oximetry 100 100 04/01/22 21:09 04/01/22 21:10 04/01/22 21:11 Temperature Pulse Rate 108 H 112 H Blood Pressure 118/89 120/83 Pulse Oximetry 100 04/01/22 21:12 04/01/22 21:14 04/01/22 21:15 Temperature Pulse Rate 114 H 110 H Blood Pressure 106/79 116/85 Pulse Oximetry 100 04/01/22 21:18 04/01/22 21:19 04/01/22 21:21 Temperature Pulse Rate 103 H 114 H Blood Pressure 113/79 99/61 L Pulse Oximetry 100 04/01/22 21:24 04/01/22 21:27 04/01/22 21:29 Temperature Pulse Rate 113 H 108 H Blood Pressure 100/68 97/57 L Pulse Oximetry 100 100 04/01/22 21:30 04/01/22 21:34 04/01/22 21:36 Temperature Pulse Rate 103 H 118 H 93 Blood Pressure 99/68 L 104/56 L 120/71 Pulse Oximetry 100 04/01/22 21:39 04/01/22 21:42 04/01/22 21:44 Temperature Pulse Rate 111 H 96 Blood Pressure 114/81 120/80 Pulse Oximetry 100 100 04/01/22 21:45 04/01/22 21:48 04/01/22 21:49 Temperature Pulse Rate 112 H 100 Blood Pressure 107/73 124/74 Pulse Oximetry 100 04/01/22 21:54 04/01/22 21:59 04/01/22 22:00 Temperature 98.1 F Pulse Rate 101 H Blood Pressure 106/76 Pulse Oximetry 100 100 04/01/22 22:04 04/01/22 22:09 04/01/22 22:14 Temperature Pulse Rate Blood Pressure Pulse Oximetry 100 100 100 04/01/22 22:15 04/01/22 22:19 04/01/22 22:24 Temperature Pulse Rate 91 Blood Pressure 115/80 Pulse Oximetry 99 100 04/01/22 22:29 04/01/22 22:31 04/01/22 22:34 Temperature Pulse Rate 99 Blood Pressure 110/80 Pulse Oximetry 100 100 04/01/22 22:39 04/01/22 22:44 04/01/22 22:45 Temperature Pulse Rate 94 Blood Pressure 119/79 Pulse Oximetry 100 100 04/01/22 22:49 04/01/22 22:54 04/01/22 22:59 Temperature Pulse Rate Blood Pressure Pulse Oximetry 100 100 100 04/01/22 23:00 04/01/22 23:04 04/01/22 23:09 Temperature Pulse Rate 86 Blood Pressure 118/83 Pulse Oximetry 100 100 04/01/22 23:14 04/01/22 23:15 04/01/22 23:19 Temperature Pulse Rate 86 Blood Pressure 112/71 Pulse Oximetry 100 100 04/01/22 23:24 04/01/22 23:29 04/01/22 23:30 Temperature Pulse Rate 86 Blood Pressure 101/65 Pulse Oximetry 100 100
[2022-04-02] MEDS: OXYTOCIN 30 UNITS/NS 500 ML 30 UNITS/500 ML BAG 125 UNITS IV CONT (01:17)
--- NOTE | 2022-04-02 03:55 | OBPPTRN ---
Patient transferred to post room #291 via W/C. Support person present. Oriented to unit, room, information board, rooming in, admission packet and security measures. Patient verbalizes understanding.
[2022-04-02] MEDS: IBUPROFEN 600 MG TABLET PO ×3 (04:00→17:52)
[2022-04-02] MEDS: DOCUSATE SODIUM 100 MG CAPSULE PO ×2 (08:42→16:58)
[2022-04-02 15:49] LABS: Hematocrit 31.1 % (37.0-47.0); Hemoglobin 10.1 g/dL (12.0-15.0)
[2022-04-02 16:46] LABS: HIV 1/2 Ab P24 Ag Result Negative (Negative)
[2022-04-02 17:42] LABS: Hepatitis B Surface Antigen Negative (Negative); Rubella IgG Antibody 74.4 IU/ML
[2022-04-02] MEDS: ACETAMINOPHEN 325 MG TABLET 650 MG PO (22:56)
[2022-04-03] MEDS: IBUPROFEN 600 MG TABLET PO ×2 (00:05→07:51)
[2022-04-03 00:10] VITALS: BP 108/64; PULSE 78; RESP 16
--- NOTE | 2022-04-03 07:43 | PM.OBPNVD ---
OB - PN: Subj Subjective Date/time seen: 04/03/22 07:43 Patient comments: no complaints and pain well controlled baby status: doing well OB - PN: Obj Data Labs CBC & Chem 7: 04/02/22 15:42 Labs: Laboratory Results - last 24 hr 04/02/22 04/02/22 04/02/22 15:42 15:42 15:42 Hgb 10.1 L Hct 31.1 L Hep Bs Antigen Negative HIV 1&2 Ab/P24 Ag 4thGn Negative Rubella IgG Antibody 74.4 OB - PN A/P Assessment and Plan (1) Normal vaginal delivery of second : Code(s): O80 - Encounter for full-term uncomplicated delivery Status: Acute (2) labor: Code(s): O60.00 - labor without delivery, unspecified trimester Status: Acute Time Spent With Patient Time: Total time spent is greater than 50% in coordination of care (as documented) at patient's floor/unit and/or counseling patient:
--- NOTE | 2022-04-03 07:44 | PM.DS ---
DS: Admitting Diagnosis Discharge Date 04/03/2022 Admitting Diagnosis pre term labor in active labor DS: Discharge Diagnosis Discharge Diagnosis (1) labor: Code(s): O60.00 - labor without delivery, unspecified trimester Status: Acute DS: Summary Hospital Course Reason for hospitalization: labor at 36 weeks Hospital Course: patient was admitted at 36 weeks gestation in active labor. She went through a rapid 1st stage of labor to completely dilated. She pushed delivered a male spontaneously. Her hospital course unremarkable the next 36hours. She remained afebrile. She was up, voiding without difficulty, ambulating, general without complaints. Time Spent with Patient Time attestation: Total time spent providing and/or coordinating discharge services: DS: Data Data Completed and Pending Labs on day of discharge: Labs from last 24 hours 04/02/22 04/02/22 04/02/22 15:42 15:42 15:42 Hgb 10.1 L Hct 31.1 L Hep Bs Antigen Negative HIV 1&2 Ab/P24 Ag 4thGn Negative Rubella IgG Antibody 74.4 Discharge Plan Discharge Attending physician on discharge: Trell Mullins Discharging Clinician: Trell Mullins Patient Disposition: Home, Self-Care Activity: may shower and pelvic rest Diet: heart healthy Wound Care Instructions: follow printed instructions Patient Instructions: Antibiotic Form Stand Alone Forms: General Discharge Information Follow-up/Referrals: Braulio Bhatti MD [Physician] - Discharge Medications: Continued acetaminophen [Mapap (acetaminophen)] 325 mg Tablet 650 mg PO Q6H PRN (Reason: Mild Pain (1-3) Or Headache) 10 Days Qty: 60 0RF PNV cmb#95-ferrous fumarate-FA [] 28 mg iron- 800 mcg Tablet 1 tablet PO DAILY 30 Days Qty: 30 0RF Date of admission: 04/01/22 19:58 Primary Care Provider: PHYSICIAN,TRUST OPERATIONS ASSISTANT Admitting Provider: Braulio Bhatti Attending physician on admission: Braulio Bhatti Condition: Stable
[2022-04-03 08:45] VITALS: BP 98/60; PULSE 70; TEMP 36.7
--- NOTE | 2022-04-03 10:10 | PC.NURSE ---
Patient to view the discharge video Mother & Baby Care, The First Two Weeks online. Patient was given the opportunity and encouraged to ask questions. Patient verbalized understanding of information shared and has been given the mother/baby guide for home reference.
[2022-04-04 05:56] LABS: Rapid Plasma Reagin Non-Reactive (NonReactive)
== END 2022-04-03 12:25 | disposition home or self-care (01) | DRG 807 ==
LOC: ANHLDR 19:43 → ANHOB2 04-03 07:46 → ANHLDR 04-06 08:14 → ANHOB2 04-06 08:14
PROVIDERS: Admitting Provider Obstetrics & Gynecology; Visit Provider Obstetrics & Gynecology
DX: O60.13X0 Preterm labor second trimester with preterm delivery third trimester, not applicable or unspecified (principal); Z37.0 Single live birth; Z3A.36 36 weeks gestation of pregnancy
CPT/HCPCS: 36415; 85014; 85018; 85025; 86592; 86703; 86762; 86850; 86900; 86901; 87340; A9270; G0432; J0290; J2590; J2795; J7120

== ENCOUNTER 2023-03-16 20:02 | Emergency (ER) | payer OTHER, SELFPAY ==
[2023-03-16 20:05] VITALS: BP 124/87; PULSE 89; RESP 14; TEMP 36.6; O2SAT 100
--- NOTE | 2023-03-16 22:20 | ED.GENADULT ---
HPI - General Adult General Chief complaint: Neck Pain/Injury Stated complaint: neck pain/ear infectoin Time Seen by Provider: 03/16/23 22:01 Source: patient Mode of arrival: ambulatory Limitations: no limitations History of Present Illness HPI narrative: Patient is 27 years old white female drove herself to the emergency room complaining of bilateral ear pain and discharge for the last 4 years, at least once a month with discharge last for about 5 days and then gets better. Patient is a swimmer, also complaining of neck pain bilaterally. She denies any fever, chills, nausea, vomiting, sore throat, difficulty swallowing or breathing. Patient drove herself to the emergency room. Patient has 3 children, does not have time to see a physician for the last 4 years. Related Data Allergies Allergy/AdvReac Type Severity Reaction Status Date / Time banana bag Allergy Swelling Uncoded 04/01/22 20:10 of Lip/Tongue/Throat Review of Systems Review of Systems: All systems reviewed & are unremarkable except as noted in HPI and below PMFSH Past Medical History Medical History Overweight (BMI 25.0-29.9) and not yet delivered Family History Family History Other No pertinent family history Social History Social History Smoking status: Never smoker Substance use: never Gender identity (if verbalized by the patient): Female Spiritual care concerns: No Exam Narrative: General appearance: Well-developed, well-nourished Skin: Normal color Head: Normocephalic, nontraumatic Eyes: Clear conjunctiva ENT: Oropharynx normal, ears normal, nose normal erythematous ear canals, tender, yellow crusts bilaterally no discharge Neck: Supple, nontender Chest and respiratory: Airway patent, no respiratory distress, no accessory muscle use Heart: Regular rate/rhythm Neurologic: Alert and oriented ?3, 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 Physical examination showed no discharge, intact tympanic membrane bilaterally, slightly erythematous. Patient to be discharged on Augmentin, Cortisporin otic and ibuprofen as needed to follow-up with Dr. Peralta next week. Differential Diagnosis Differential Diagnosis: Otitis media, otitis externa Vital Signs Vital Signs: Vital Signs Temperature 36.6 C 03/16/23 20:05 Pulse Rate 89 03/16/23 20:05 Respiratory Rate 14 03/16/23 20:05 Blood Pressure 124/87 03/16/23 20:05 Pulse Oximetry 100 03/16/23 20:05 Oxygen Delivery Room Air 03/16/23 20:05 Temperature 36.6 C 03/16/23 20:05 Pulse Rate 89 03/16/23 20:05 Respiratory Rate 14 03/16/23 20:05 Blood Pressure 124/87 03/16/23 20:05 Pulse Oximetry 100 03/16/23 20:05 Oxygen Delivery Room Air 03/16/23 20:05 Critical Care Time Critical Care Time Critical Care Time: No Discharge Plan Discharge Clinical Impression:
[2023-03-16 23:14] VITALS: BP 111/78; PULSE 72; RESP 16; O2SAT 99
== END 2023-03-16 23:14 | disposition home or self-care (01) ==
LOC: ANHED 22:45
PROVIDERS: Emergency Provider Emergency Medicine
DX: H60.93 Unspecified otitis externa, bilateral (principal); E66.3 Overweight; Z68.26 Body mass index [BMI] 26.0-26.9, adult
CPT/HCPCS: 99283

== ENCOUNTER 2024-01-05 00:04 | Observation (INO) | payer OTHER, SELFPAY ==
[2024-01-05 00:24] VITALS: BP 112/70; PULSE 112
[2024-01-05 00:31] VITALS: BP 107/70; PULSE 95
[2024-01-05 00:48] VITALS: PULSE 108; O2SAT 99
[2024-01-05 00:53] VITALS: PULSE 100; O2SAT 98
[2024-01-05 00:58] VITALS: PULSE 100; O2SAT 97
[2024-01-05] MEDS: ONDANSETRON HCL ODT 4 MG TABLET PO (01:03)
[2024-01-05 01:25] LABS: Appearance Urine Cloudy (Clear); Bacteria Urine 1+ /hpf; Bilirubin Urine Negative (Negative); Blood Urine Negative (Negative); Color Urine Yellow (Yellow); Glucose Urine UA Negative (Negative); Ketones Urine Negative (Negative); Leukocyte Esterase Ur 2+ LEU/UL (Negative); Nitrate Urine Negative (Negative); Non Pathogenic Casts 0-2; Protein Urine Negative (Negative); RBC Urine 0-2 /hpf (0-2); Specific Grav Ur 1.016 (1.001-1.035); Squamous Epithelial Cell Urine Few /hpf (Few); Urobilinogen Urine 0.2 mg/dL (<2.0); WBC Urine 21-50 /hpf (0-3); pH Urine 5.5 (5.0-9.0)
[2024-01-05 01:34] LABS: Add Urine Microscopic? YES
--- NOTE | 2024-02-01 21:20 | PM.OBTRLD ---
OB - Triage/Final Diagnosis Visit Information Comments/Additional reasons for admission: I have assessed the risk for this patient, Delia Aranda, and determined that she would benefit from observation care. Evaluation Laboratory results: Laboratory Tests 01/05/24 01:10 Urine Color Yellow Urine Appearance Cloudy H Urine pH 5.5 Ur Specific [place] 1.016 Urine Protein Negative Urine Glucose (UA) Negative Urine Ketones Negative Ur Blood (Man) Negative Urine Nitrate Negative Urine Bilirubin Negative Urine Urobilinogen 0.2 Ur Leukocyte Esterase 2+ H Urine RBC 0-2 Urine WBC 21-50 H Ur Squamous Epith Cells Few Urine Bacteria 1+ H Urine Casts 0-2 Final Diagnosis (1) Nausea and vomiting: Code(s): R11.2 - Nausea with vomiting, unspecified Status: Acute
== END 2024-01-05 02:04 | disposition home or self-care (01) ==
PROVIDERS: Admitting Provider Obstetrics & Gynecology; Visit Provider Obstetrics & Gynecology
DX: O21.2 Late vomiting of pregnancy (principal); Z3A.30 30 weeks gestation of pregnancy
CPT/HCPCS: 81001; 87077; 87086; 87088; A9270; G0378; G0379

== ENCOUNTER 2024-02-03 03:13 | Observation (INO) | payer OTHER, SELFPAY ==
[2024-02-03] VITALS (7 sets, daily range): BP systolic 105–119; BP diastolic 75–76; PULSE 78–111; RESP 18; TEMP 36.5–37.2; O2SAT 94–98
[2024-02-03] MEDS: DEXTROSE 5%/LACTATED RINGERS 1,000 ML 999 ML IV CONT (04:00)
[2024-02-03] MEDS: ONDANSETRON INJ 4 MG/2 ML VIAL IV PUSH (04:06)
[2024-02-03 04:08] LABS: Appearance Urine Turbid (Clear); Bacteria Urine 3+ /hpf; Bilirubin Urine Negative (Negative); Blood Urine Negative (Negative); Color Urine Yellow (Yellow); Glucose Urine UA Negative (Negative); Ketones Urine Negative (Negative); Leukocyte Esterase Ur 3+ LEU/UL (Negative); Mucus Urine Present /lpf; Need Manual Microscopic Reviewed; Nitrate Urine Negative (Negative); Protein Urine 1+ mg/dL (Negative); RBC Urine 0-2 /hpf (0-2); Specific Grav Ur 1.021 (1.001-1.035); Squamous Epithelial Cell Urine Many /hpf (Few); Urobilinogen Urine 0.2 mg/dL (<2.0); WBC Urine >100 /hpf (0-3)
[2024-02-03 04:09] LABS: Add Urine Microscopic? YES
--- NOTE | 2024-02-03 04:19 | OBADM ---
This patient, Delia Aranda, admitted to the OB room OB Post 117 for observation. Patient/family oriented to hospital policies and general routines including ID bracelet, bed and alarms, visiting hours, pain management, procedures, bathroom and other care routines, personal items, smoking policy, room service/diet, and visiting hours. Patient/Family are encouraged to report perceived risks to care and to ask questions if they do not understand what they are told or what they should do.
[2024-02-03 04:48] LABS: Basophils Percent Auto 0.4 % (0.2-1.2); Eosinophils Absolute Auto 0.3 K/mm3 (0-0.3); Eosinophils Percent Auto 2.5 % (0-4.4); Hematocrit 33.3 % (37.0-47.0); Hemoglobin 10.5 g/dL (12.0-15.0); Immature Granulocyte Absolute 0.06 K/mm3 (0.00-0.031); Immature Granulocyte Percent A 0.6 % (0-0.5); Lymphocytes Absolute Auto 2.37 K/mm3 (0.9-3.2); Lymphocytes Percent Auto 22.8 % (18.3-44.2); Mean Corpuscular HGB Conc 31.5 g/dl (32-36); Mean Corpuscular Hemoglobin 25.4 pg (26-34); Mean Corpuscular Volume 80.6 fl (80-100); Mean Platelet Volume 11.8 fl (7.4-10.4); Monocytes Absolute Auto 0.6 K/mm3 (0.1-0.6); Monocytes Percent Auto 6.1 % (2.6-8.5); Neutrophils Percent Auto 67.6 % (45.5-73.1); Platelet Count Result 273 k/mm3 (150-375); Red Blood Count 4.13 M/mm3 (4.2-5.4); White Blood Count 10.4 K/mm3 (4.5-10.0)
[2024-02-03 05:41] LABS: Alanine Aminotransferase 12 U/L (6-35); Albumin Level 3.5 g/dL (3.5-5.1); Alkaline Phosphatase 139 U/L (38-126); Anion Gap 8 mmol/L (4-12); Aspartate Amino Transferase 22 U/L (14-36); Bilirubin,Total 0.3 mg/dL (0.2-1.3); Blood Urea Nitrogen 6 mg/dL (7-17); Calcium 8.9 mg/dL (8.4-10.2); Carbon Dioxide 15 mmol/L (22-30); Chloride 110 mmol/L (98-107); Estimated CRCL calculation 194 ml/min; Estimated Glomerular Filt Rate > 60; Glucose 112 mg/dL (65-110); Potassium 3.7 mmol/L (3.4-5.0); Sodium 133 mmol/L (137-145)
[2024-02-03] MEDS: DIPHENOXYLATE/ATROPINE (*CRX) 2.5 MG TABLET 1 TABLET PO (05:49)
[2024-02-03] MEDS: SODIUM CHLORIDE 0.9% IV 1,000 ML 100 ML IV CONT (05:57)
--- NOTE | 2024-02-03 08:10 | PM.IMHP ---
H&P: [facility] History of Present Illness Date/Time: 02/03/24 08:10 Chief Complaint: nausea, vomiting, diarrhea Narrative: this patient is a 28 4 para 3003 at 33 weeks gestation who presented with persistent diarrhea, nausea vomiting. Patient reports belching throughout the day on the days she has nausea. She has with significant troubles with acid reflux. She has been given instructions in the office. She did not apply that recommendation. She has reassuring heart tones. She was treated with IV fluids. She was treated with antiemetics. She was treated with proton pump inhibitors. She feels better and would like to be discharged. She was discharged home. 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 Review of Systems Review of Systems: All systems reviewed & are unremarkable except as noted in HPI and below Constitutional: Constitutional: Denies chills, Denies fatigue, Denies fever(s) and Denies weakness Eyes: Eyes: Denies blurry vision, Denies change in vision, Denies loss of peripheral vision, Denies loss of vision, Denies other visual disturbances and Denies eye pain ENT: Denies vertigo, Denies dizziness, Denies hearing loss, Denies mouth pain, Denies nasal obstruction, Denies neck mass and Denies neck pain Cardiovascular: Cardiovascular: Denies chest pain, Denies diaphoresis, Denies syncope, Denies leg edema and Denies dyspnea Respiratory: Respiratory: Denies chest congestion, Denies cough, Denies hemoptysis, Denies dyspnea and Denies wheezing Gastrointestinal: Gastrointestinal: Denies abdominal pain, Denies constipation, Denies diarrhea, Denies nausea and Denies vomiting Genitourinary: Genitourinary: Denies hematuria, Denies change in libido, Denies nocturia, Denies genital lesions, Denies flank pain and Denies urinary urgency Musculoskeletal: Musculoskeletal: Denies abnormal gait, Denies back pain, Denies myalgias, Denies arthralgias, Denies joint swelling, Denies muscle weakness and Denies neck pain Integumentary/Breasts: Skin/Breast: Denies swelling, Denies breast pain, Denies breast mass, Denies dry skin, Denies nipple discharge, Denies unusual bruising and Denies jaundice Neurologic: Denies Neuro-related abnormal movements, Denies Abnormal speech present, Denies abnormal gait, Denies behavioral changes, Denies confusion, Denies vertigo, Denies dizziness, Denies syncope, Denies loss of vision, Denies memory loss, Denies convulsions and Denies weakness Psychiatric: Psychiatric: Denies abnormal sleep pattern, Denies behavioral changes, Denies change in libido, Denies confusion, Denies depression, Denies anhedonia and Denies memory loss Endocrine: Endocrine: Reports no additional endocrine complaints, Denies change in libido and Denies fatigue Hematologic/Lymphatic: Hematologic/Lymphatic: Reports no additional hematologic/lymphatic complaints Allergic/Immunologic: Allergic/Immunologic: Reports no additional allergic/immunologic complaints and Denies wheezing PMFSH Past Medical History Medical History Overweight (BMI 25.0-29.9) and not yet delivered Family History Family History Other No pertinent family history Social History Social History Smoking status: Never smoker Substance use: never Gender identity (if verbalized by the patient): Female Spiritual care concerns: No Meds Home Medications and Allergies Home Medications Medication Instructions Recorded Confirmed Type acetaminophen 325 mg tablet (Mapap 650 mg PO Q6H PRN Mild Pain (1-3) 09/09/20 04/01/22 Rx (acetaminophen)) Or Headache 10 days #60 tabs vit no.95-ferrous 1 tablet PO DAILY 30 days #30 tabs 09/09/20 04/01/22 Rx fumarate 28 mg-folic acid 800 mcg tablet () [id number] 3.3 4 drp EACH EAR TID #20 mL 02/24
--- NOTE | 2024-03-03 19:43 | P.PNOB_ITS ---
OB - Triage/Final Diagnosis Visit Information Comments/Additional reasons for admission: I have assessed the risk for this patient, Delia Aranda, and determined that she would benefit from observation care. Evaluation Laboratory results: Laboratory Tests 02/03/24 03:44 WBC 10.4 H RBC 4.13 L Hgb 10.5 L Hct 33.3 L MCV 80.6 MCH 25.4 L MCHC 31.5 L RDW 16.0 H Plt Count 273 MPV 11.8 H Immature Gran % (Auto) 0.6 H Neut % (Auto) 67.6 Lymph % (Auto) 22.8 [place] % (Auto) 6.1 Eos % (Auto) 2.5 Baso % (Auto) 0.4 Lymph # (Auto) 2.37 [place] # (Auto) 0.6 Eos # (Auto) 0.3 Baso # (Auto) 0.0 Abs Immat Gran (auto) 0.06 H Absolute Neuts (auto) 7.0 H Absolute Nucleated RBC 0.000 Nucleated RBC % 0.0 Sodium 133 L Potassium 3.7 Chloride 110 H Carbon Dioxide 15 L Anion Gap 8 BUN 6 L Creatinine 0.40 L Estim Creat Clear Calc 194 Estimated GFR > 60 Glucose 112 H Calcium 8.9 Total Bilirubin 0.3 AST 22 ALT 12 Alkaline Phosphatase 139 H Total Protein 7.0 Albumin 3.5 Urine Color Yellow Urine Appearance Turbid H Urine pH 5.0 Ur Specific [place] 1.021 Urine Protein 1+ H Urine Glucose (UA) Negative Urine Ketones Negative Ur Blood (Man) Negative Urine Nitrate Negative Urine Bilirubin Negative Urine Urobilinogen 0.2 Add Ur Microanalysis Reviewed Leukocyte Esterase Rfl 3+ H Urine RBC 0-2 Urine WBC >100 H Ur Squamous Epith Cells Many H Urine Bacteria 3+ H Urine Casts 11-20 Urine Mucus Present Final Diagnosis (1) Diarrhea: Code(s): R19.7 - Diarrhea, unspecified Status: Acute
== END 2024-02-03 07:50 | disposition home or self-care (01) ==
PROVIDERS: Admitting Provider Obstetrics & Gynecology; Visit Provider Obstetrics & Gynecology
DX: O99.613 Diseases of the digestive system complicating pregnancy, third trimester (principal); R19.7 Diarrhea, unspecified; K21.9 Gastro-esophageal reflux disease without esophagitis; O21.2 Late vomiting of pregnancy; Z3A.33 33 weeks gestation of pregnancy
CPT/HCPCS: 36415; 80053; 81001; 85025; 87086; 87088; 96361; 96374; 96375; A9270; G0378; G0379; J0696; J2405; J7030; J7121

== ENCOUNTER 2024-02-21 17:57 | Observation (INO) | payer OTHER, SELFPAY ==
[2024-02-21] VITALS (49 sets, daily range): BP systolic 94–126; BP diastolic 54–86; PULSE 89–140; TEMP 36.7; O2SAT 97–100; BMI 30.2
[2024-02-21] MEDS: LACTATED RINGERS 1,000 ML 999 ML IV CONT (18:50)
[2024-02-21] MEDS: TERBUTALINE SULFATE 1 MG/ML VIAL 0.25 MG SUB-Q (18:55)
--- NOTE | 2024-02-21 18:55 | PM.IMHP ---
H&P: HPI History of Present Illness Date/Time: 02/21/24 18:55 Chief Complaint: pt is a at 35.4 weeks gestation, who presents with contractions. SVE by RN 2cm 50 % effaced. FHR category 1, contractions every 2 minutes. has been complicated by anemia, LGA, and history of covid during the . last delivered a 7lb baby at 35 weeks gestation. Review of Systems Review of Systems: All systems reviewed & are unremarkable except as noted in HPI and below PMFSH Past Medical History Medical History Overweight (BMI 25.0-29.9) and not yet delivered Family History Family History Other No pertinent family history Social History Social History Smoking status: Never smoker Substance use: never Gender identity (if verbalized by the patient): Female Spiritual care concerns: No Meds Home Medications and Allergies Home Medications Medication Instructions Recorded Confirmed Type acetaminophen 325 mg tablet (Mapap 650 mg PO Q6H PRN Mild Pain (1-3) 09/09/20 04/01/22 Rx (acetaminophen)) Or Headache 10 days #60 tabs vit no.95-ferrous 1 tablet PO DAILY 30 days #30 tabs 09/09/20 04/01/22 Rx fumarate 28 mg-folic acid 800 mcg tablet () [id number] 3.3 4 drp EACH EAR TID #20 mL 03/16/23 Rx mg-3 mg-10 mg-0.5 mg/mL ear drops,susp (Cortisporin-TC) Allergies Allergy/AdvReac Type Severity Reaction Status Date / Time banana bag Allergy Swelling Uncoded 04/01/22 20:10 of Lip/Tongue/Throat Vital Signs Vital Signs - 24 hr 02/21/24 18:15 02/21/24 18:30 02/21/24 18:36 Pulse Rate 94 106 H Blood Pressure 121/82 117/83 Pulse Oximetry 99 02/21/24 18:41 02/21/24 18:46 02/21/24 18:51 Pulse Rate Blood Pressure Pulse Oximetry 98 99 97 Exam Const: General: cooperative and healthy appearing Chest: Chest palpation & inspection: normal inspection of the chest Resp: Effort & Inspection: normal respiratory effort Cardio: Rate: regular rate Rhythm: regular rhythm GI: Other: gravid : Other: per RN Skin: General skin exam: normal color and no rashes or lesions noted Neuro: General: patient oriented x3 Extrem: Right lower extremity: normal to inspection Left lower extremity: normal to inspection Psych: Appearance: grossly normal Assessment and Plan Assessment and plan (1) 35 weeks gestation of : Code(s): Z3A.35 - 35 weeks gestation of Status: Acute Assessment and Plan: contractions plan IV hydration terbutaline betamethasone co-managing with dr. miles and dr. hendrickson (2) contractions: Code(s): O47.00 - False labor before 37 completed weeks of gestation, unspecified trimester Status: Acute
[2024-02-21] MEDS: BETAMETHASONE SOD PHOS/ACETATE 30 MG/5 ML VIAL 12 MG IM (19:43)
[2024-02-21] MEDS: NIFEdipine 10 MG CAPSULE PO ×2 (19:55→23:59)
[2024-02-21] MEDS: LACTATED RINGERS 1,000 ML 150 ML IV CONT (19:55)
[2024-02-22] MEDS: LACTATED RINGERS 1,000 ML 150 ML IV CONT (03:08)
[2024-02-22 04:00] VITALS: TEMP 36.7
[2024-02-22] MEDS: NIFEdipine 10 MG CAPSULE PO (04:02)
[2024-02-22 04:05] VITALS: BP 107/72; PULSE 113
[2024-02-22] MEDS: CALCIUM CARBONATE (TUMS) 500 MG (200 MG ELEMENTAL) 400 MG PO (04:14)
--- NOTE | 2024-02-22 07:48 | PC.NURSE ---
Patient is no longer radha. Kali Barrett CNM at bedside reviewing tracing. Verbal orders received to discharge patient to home with Procardia prescription. Patient to come back tonight for second dose of Celestone.
--- NOTE | 2024-02-22 07:58 | PC.NURSE ---
Patient states she does not feel any contractions and Kali Barrett CNM states patient may skip 0800 dose of nifedipine.
--- NOTE | 2024-02-22 08:09 | PM.OBPNVD ---
OB - PN: Subj Subjective Date/time seen: 02/22/24 08:09 Interval history: at 35 weeks with contractions, per RN, no cervical change, pt resting comfortably, FHR category 1 OB - PN A/P Assessment and Plan (1) contractions: Code(s): O47.00 - False labor before 37 completed weeks of gestation, unspecified trimester Status: Acute Plan at 35 weeks Undelivered contractions resolved procardia 10mg q 4 PRN return tonight for betamethasone co-managed with dr. hendrickson Time Spent With Patient Time: Total time spent is greater than 50% in coordination of care (as documented) at patient's floor/unit and/or counseling patient: Review of Systems Review of Systems: All systems reviewed & are unremarkable except as noted in HPI and below Exam Const: General: cooperative and healthy appearing Resp: Effort & Inspection: normal respiratory effort Cardio: Rate: regular rate Rhythm: regular rhythm Skin: General skin exam: normal color Neuro: General: patient oriented x3 Extrem: Right lower extremity: normal to inspection Left lower extremity: normal to inspection
--- NOTE | 2024-02-24 06:43 | PM.OBTRLD ---
OB - Triage/Final Diagnosis Visit Information Date of evaluation: 03/24/24 Reason for evaluation: threatened labor Comments/Additional reasons for admission: I have assessed the risk for this patient, Delia Aranda, and determined that she would benefit from observation care.
== END 2024-02-22 08:13 | disposition home or self-care (01) ==
PROVIDERS: Admitting Provider Obstetrics & Gynecology; Visit Provider Obstetrics & Gynecology
DX: O47.03 False labor before 37 completed weeks of gestation, third trimester (principal); Z3A.35 35 weeks gestation of pregnancy
CPT/HCPCS: 96360; 96361; 96372; A9270; G0378; G0379; J0702; J3105; J7120

== ENCOUNTER 2024-02-22 19:02 | Outpatient (CLI) | payer OTHER, SELFPAY ==
[2024-02-22] MEDS: BETAMETHASONE SOD PHOS/ACETATE 30 MG/5 ML VIAL 12 MG IM (19:16)
== END 2024-02-22 19:03 | disposition home or self-care (01) ==
LOC: ANHOBOP 19:06
PROVIDERS: Visit Provider Obstetrics & Gynecology
DX: O36.8990 Maternal care for other specified fetal problems, unspecified trimester, not applicable or unspecified (principal)
CPT/HCPCS: 96372; J0702

== ENCOUNTER 2024-02-23 18:45 | Observation (INO) | payer OTHER, SELFPAY ==
--- NOTE | 2024-02-23 19:23 | PC.NURSE ---
Called Dr. Jaquez, update on pt, contractions, and cervical exam. Orders received to administer procardia 10 mg and terbutaline 0.25 mg.
[2024-02-23] MEDS: NIFEdipine 10 MG CAPSULE PO (19:45)
--- NOTE | 2024-02-23 19:47 | PM.IMHP ---
H&P: HPI History of Present Illness Date/Time: 02/23/24 19:47 Chief Complaint: Contractions Narrative: this is a 28-year-old female, multiparous, who presents with contractions at 35 weeks gestation. This has been happening intermittently for several weeks. She has received steroids. Her cervix is essentially the same as the other day. She is radha regularly. They are not particularly painful. She has been taking scheduled Procardia. She was previously treated with terbutaline. She does not want to be treated with terbutaline today. We will continue observation for a period of time. Her cervix is unchanged from 2 days ago. There is reassuring heart tones. To perform serial cervical exams and consider discharge after period of observation. Review of Systems Review of Systems: All systems reviewed & are unremarkable except as noted in HPI and below Constitutional: Constitutional: Denies chills, Denies fatigue, Denies fever(s) and Denies weakness Eyes: Eyes: Denies blurry vision, Denies change in vision, Denies loss of peripheral vision, Denies loss of vision, Denies other visual disturbances and Denies eye pain ENT: Denies vertigo, Denies dizziness, Denies hearing loss, Denies mouth pain, Denies nasal obstruction, Denies neck mass and Denies neck pain Cardiovascular: Cardiovascular: Denies chest pain, Denies diaphoresis, Denies syncope, Denies leg edema and Denies dyspnea Respiratory: Respiratory: Denies chest congestion, Denies cough, Denies hemoptysis, Denies dyspnea and Denies wheezing Gastrointestinal: Gastrointestinal: Denies abdominal pain, Denies constipation, Denies diarrhea, Denies nausea and Denies vomiting Genitourinary: Genitourinary: Denies hematuria, Denies change in libido, Denies nocturia, Denies genital lesions, Denies flank pain and Denies urinary urgency Musculoskeletal: Musculoskeletal: Denies abnormal gait, Denies back pain, Denies myalgias, Denies arthralgias, Denies joint swelling, Denies muscle weakness and Denies neck pain Integumentary/Breasts: Skin/Breast: Denies swelling, Denies breast pain, Denies breast mass, Denies dry skin, Denies nipple discharge, Denies unusual bruising and Denies jaundice Neurologic: Denies Neuro-related abnormal movements, Denies Abnormal speech present, Denies abnormal gait, Denies behavioral changes, Denies confusion, Denies vertigo, Denies dizziness, Denies syncope, Denies loss of vision, Denies memory loss, Denies convulsions and Denies weakness Psychiatric: Psychiatric: Denies abnormal sleep pattern, Denies behavioral changes, Denies change in libido, Denies confusion, Denies depression, Denies anhedonia and Denies memory loss Endocrine: Endocrine: Reports no additional endocrine complaints, Denies change in libido and Denies fatigue Hematologic/Lymphatic: Hematologic/Lymphatic: Reports no additional hematologic/lymphatic complaints Allergic/Immunologic: Allergic/Immunologic: Reports no additional allergic/immunologic complaints and Denies wheezing PMFSH Past Medical History Medical History Overweight (BMI 25.0-29.9) and not yet delivered Family History Family History Other No pertinent family history Social History Social History Smoking status: Never smoker Substance use: never Gender identity (if verbalized by the patient): Female Spiritual care concerns: No Meds Home Medications and Allergies Home Medications Medication Instructions Recorded Confirmed Type acetaminophen 325 mg tablet (Mapap 650 mg PO Q6H PRN Mild Pain (1-3) 09/09/20 04/01/22 Rx (acetaminophen)) Or Headache 10 days #60 tabs vit no.95-ferrous 1 tablet PO DAILY 30 days #30 tabs 09/09/20 02/22/24 Rx fumarate 28 mg-folic acid 800 mcg tablet () [id number]
--- NOTE | 2024-02-23 21:01 | OBADM ---
This patient, Delia Aranda, admitted to the OB room Labor/Delivery/Recovery 106 for observation. Patient/family oriented to hospital policies and general routines including ID bracelet, bed and alarms, visiting hours, pain management, procedures, bathroom and other care routines, personal items, smoking policy, room service/diet, and visiting hours. Patient/Family are encouraged to report perceived risks to care and to ask questions if they do not understand what they are told or what they should do.
--- NOTE | 2024-03-24 20:39 | PM.OBTRLD ---
OB - Triage/Final Diagnosis Visit Information Comments/Additional reasons for admission: I have assessed the risk for this patient, Delia Aranda, and determined that she would benefit from observation care. Final Diagnosis (1) False labor: Code(s): O47.9 - False labor, unspecified Status: Acute
--- NOTE | 2024-03-24 20:55 | P.DS_ITS ---
DS: Admitting Diagnosis Discharge Date 02/23/24 Admitting Diagnosis labor DS: Discharge Diagnosis Discharge Diagnosis (1) delivery: Code(s): O60.10X0 - labor with delivery, unspecified trimester, not applicable or unspecified Status: Acute OB - DS: Summary OB Procedures : None OB Procedures Intrapartum: Spontaneous Vag Delivery OB Procedures: : None Time Spent with Patient Time attestation: Total time spent providing and/or coordinating discharge services: Discharge Plan Discharge Attending physician on discharge: Fuad Jaquez Discharging Clinician: Fuad Jaquez Patient Disposition: Home, Self-Care Activity: as tolerated Diet: as tolerated Discharge Instructions: OB ANTEPARTUM DISCHARGE INSTRUCTIONS This information is given to help you properly care for yourself at home after your discharge from the hospital. Follow these instructions until your doctor tells you otherwise. DIET: Advance As Tolerated Additional Diet Instructions: ACTIVITY: As Tolerated Additional Activity Instructions: RETURN TO LABOR AND DELIVERY IF YOU HAVE: Any Change In Baby's Normal Movement Pattern Any Leakage of Fluid Contractions 5-7 Minutes Apart with Increasing Intensity Vaginal Bleeding Warning Signs of Pre-term Labor as per Handout Additional Reasons to Return to Labor and Delivery: Contractions may feel like abdominal pain, tightening, cramping, pressure, back ache, or thigh ache. OTHER INSTRUCTIONS: FOLLOW-UP CARE: Keep Next Scheduled Appointment To see in/on Valuables released to patient or family? N/A Medications from home returned to patient? N/A I Acknowledge Receipt of and Understand the Above Instructions IF YOU HAVE ANY QUESTIONS REGARDING THESE INSTRUCTIONS, PLEASE CALL [phone]. IF PROBLEMS ARISE, CALL YOUR PROVIDER. IF EMERGENCY CARE IS NEEDED, [facility] EMERGENCY ROOM IS AVAILABLE 24 HOURS A DAY. Stand Alone Forms: General Discharge Information Follow-up/Referrals: Fuad Jaquez MD [Physician] - Discharge Medications: Continued PNV cmb#95-ferrous fumarate-FA [] 28 mg iron- 800 mcg Tablet 1 tablet PO DAILY 30 Days Qty: 30 0RF Discontinued acetaminophen [Mapap (acetaminophen)] 325 mg Tablet 650 mg PO Q6H PRN (Reason: Mild Pain (1-3) Or Headache) 10 Days Qty: 60 0RF Cortisporin-TC 3.3-3-10-0.5 mg/mL drops,suspension 4 drp EACH EAR TID Qty: 20 0RF Date of admission: 02/23/24 18:45 Primary Care Provider: PHYSICIAN NOT ON STAFF,NONSTAFF Admitting Provider: Fuad Jaquez Attending physician on admission: Fuad Jaquez Condition: Stable
== END 2024-02-23 21:12 ==
PROVIDERS: Admitting Provider Obstetrics & Gynecology; Visit Provider Obstetrics & Gynecology
DX: O47.03 False labor before 37 completed weeks of gestation, third trimester (principal); Z3A.35 35 weeks gestation of pregnancy
CPT/HCPCS: A9270; G0378; G0379

== ENCOUNTER 2024-02-25 05:26 | Inpatient (IN) | payer OTHER, SELFPAY ==
[2024-02-25] VITALS (40 sets, daily range): BP systolic 98–149; BP diastolic 62–93; PULSE 45–156; RESP 16–20; TEMP 36.2–36.7; O2SAT 94–100; BMI 30.4
[2024-02-25] MEDS: fentaNYL CITRATE INJ (*CRX) 100 MCG/2 ML VIAL IV PUSH (05:50)
[2024-02-25] MEDS: AMPICILLIN 2 GM/NS 100 ML 2 GM/100 ML BAG IVPB (05:58)
--- NOTE | 2024-02-25 05:58 | LDADM ---
This patient, Delia Aranda, was admitted to Labor/Delivery/Recovery 106 on 02/25/24 at 05:26. Plans for labor, pain management and were discussed with patient. Patient/family oriented to hospital policies and general routines including ID bracelet, bed and alarms, visiting hours, pain management, procedures, bathroom and other care routines, personal items, smoking policy, room service/diet and guest tray routines, security routines, and visiting hours. Patient/Family are encouraged to report perceived risks to care and to ask questions if they do not understand what they are told or what they should do. See OBIX for further documentation.
[2024-02-25 05:59] LABS: Basophils Absolute Auto 0.1 K/mm3 (0.0-0.1); Basophils Percent Auto 0.4 % (0.2-1.2); Eosinophils Absolute Auto 0.1 K/mm3 (0-0.3); Eosinophils Percent Auto 0.8 % (0-4.4); Hematocrit 35.5 % (37.0-47.0); Hemoglobin 11.1 g/dL (12.0-15.0); Immature Granulocyte Absolute 0.15 K/mm3 (0.00-0.031); Immature Granulocyte Percent A 1.1 % (0-0.5); Lymphocytes Absolute Auto 2.92 K/mm3 (0.9-3.2); Lymphocytes Percent Auto 22.2 % (18.3-44.2); Mean Corpuscular HGB Conc 31.3 g/dl (32-36); Mean Corpuscular Hemoglobin 24.7 pg (26-34); Mean Corpuscular Volume 78.9 fl (80-100); Mean Platelet Volume 12.8 fl (7.4-10.4); Monocytes Absolute Auto 0.9 K/mm3 (0.1-0.6); Monocytes Percent Auto 6.6 % (2.6-8.5); Neutrophils Percent Auto 68.9 % (45.5-73.1); Nucleated Red Blood Cells Perc 0.3 % (0.0-0.2); Platelet Count Result 246 k/mm3 (150-375); Red Cell Distribution Width 16.7 % (11.5-14.5); White Blood Count 13.1 K/mm3 (4.5-10.0)
--- NOTE | 2024-02-25 06:01 | WPDANESEPP ---
Anes - Eval Pre Procedure Procedure: labpr epudural Date/Time: 02/25/24 06:01 Pre Op Diagnosis: Contractions Patient Data Age: 28 Gender: F Height: Weight: Last Vital Signs Pulse Ox 95 02/25/24 06:00 Allergies Allergy/AdvReac Type Severity Reaction Status Date / Time banana bag Allergy Swelling Uncoded 02/22/24 02:14 of Lip/Tongue/Throat Home Medications Medication Instructions Recorded Confirmed Type vit no.95-ferrous 1 tablet PO DAILY 30 days #30 tabs 09/09/20 02/22/24 Rx fumarate 28 mg-folic acid 800 mcg tablet () nifedipine 10 mg capsule 10 mg PO Q4H #12 caps 02/22/24 Rx Laboratory Tests 02/25/24 05:50 WBC Pending RBC Pending Hgb Pending Hct Pending MCV Pending MCH Pending MCHC Pending RDW Pending Plt Count Pending MPV Pending Immature Gran % (Auto) Pending Neut % (Auto) Pending Lymph % (Auto) Pending [place] % (Auto) Pending Eos % (Auto) Pending Baso % (Auto) Pending Lymph # (Auto) Pending [place] # (Auto) Pending Eos # (Auto) Pending Baso # (Auto) Pending Abs Immat Gran (auto) Pending Absolute Neuts (auto) Pending Absolute Nucleated RBC Pending Nucleated RBC % Pending RPR Pending HIV 1&2 Ab/P24 Ag 4thGn Pending Patient hx anesthesia problems: none Family hx anesthesia problems: none Results Review: All pre-operative results and documents have been reviewed as part of the pre-operative evaluation. [facility] Past Medical History Medical History Overweight (BMI 25.0-29.9) and not yet delivered Family History Family History Other No pertinent family history Social History Social History Smoking status: Never smoker Substance use: never Gender identity (if verbalized by the patient): Female Spiritual care concerns: No Exam Day of Procedure 02/25/24 06:01 Patient weight: overweight Heart: regular rate and rhythm Lungs: normal air movement Airway: Mallampati scale Neurological: alert and oriented
[2024-02-25 06:53] LABS: HIV 1/2 Ab P24 Ag Result Negative (Negative)
[2024-02-25] MEDS: OXYTOCIN 30 UNITS/NS 500 ML 30 UNITS/500 ML BAG 999 UNITS IV CONT (07:19)
--- NOTE | 2024-02-25 07:49 | PM.OBPRVD ---
OB - Vaginal Delivery Note Procedure Delivery date: 02/25/24 Induction method: None Delivery augmentation: Rupture of Membranes Delivery monitor: External FHT and External Uterine Route of delivery: Episiotomy description: None Laceration Description: Perineal - 1st Degree Delivery repair: vicryl Quantitative Blood Loss (ml): 150 Anesthesia type: Epidural Complications: No immediate complications Baby Date of : 02/25/24 Time of : 07:15 Weeks of gestation at delivery: 36 gender: Male Weight (pounds): 8 Placenta delivery description: Spontaneous
[2024-02-25] MEDS: OXYTOCIN 30 UNITS/NS 500 ML 30 UNITS/500 ML BAG 125 UNITS IV CONT (07:52)
[2024-02-25 09:15] LABS: Rubella IgG Antibody 97.3 IU/ML
[2024-02-25] MEDS: IBUPROFEN 600 MG TABLET PO (10:52)
[2024-02-25] MEDS: ACETAMINOPHEN 325 MG TABLET 650 MG PO (10:53)
--- NOTE | 2024-02-25 11:25 | OBPPTRN ---
Patient transferred to post room # 282 via ambulatory. Oriented to unit, room, information board, rooming in, admission packet and security measures. Patient verbalizes understanding.
[2024-02-26 11:50] LABS: Rapid Plasma Reagin Non-Reactive (NonReactive)
--- NOTE | 2024-03-25 10:44 | P.DS_ITS ---
DS: Admitting Diagnosis Discharge Date 02/25/24 Admitting Diagnosis labor DS: Discharge Diagnosis Discharge Diagnosis (1) delivery: Code(s): O60.10X0 - labor with delivery, unspecified trimester, not applicable or unspecified Status: Acute OB - DS: Summary OB Procedures : None OB Procedures Intrapartum: Spontaneous Vag Delivery OB Procedures: : None Peripartum Data Laceration Description: Perineal - 1st Degree Episiotomy description: None Time Spent with Patient Time attestation: Total time spent providing and/or coordinating discharge services: Discharge Plan Discharge Consulting providers: Layla Marquez Discharging Clinician: Fuad Jaquez Patient Disposition: Home, Self-Care Activity: may drive after 2 weeks Diet: regular Discharge Instructions: Education: Mom and Baby Guide Given to: Mother Follow-Up: Call your delivering provider's office for an appointment to be seen in: 6 Weeks BREAST CARE: * Wear a snug supportive bra. * For engorgement discomfort: Breast Feeding: * Apply warm moist washcloths * Express milk as needed to relieve engorgement * Wear loose clothing Bottle Feeding: * May apply ice packs * For sore nipples: * Identify correct latch-on * Apply warm moist washcloths before and after nursing * Air dry nipples after nursing * May apply Lansinoh cream to nipples PERINEAL CARE: * Until bleeding stops, use your ayaz bottle after urinating * Change your pad frequently throughout the day * You may take sitz baths several times a day (fill your bathtub with warm water and soak for 20 minutes.) Do NOT bathe in the water * No tub baths until seen by your physician - You may shower ACTIVITY: * Rest as much as possible. * Do not exercise or lift anything heavier than your baby (such as laundry or other children.) * Avoid stairs or driving as much as possible. * Do not put anything into the vagina. No douching, tampons, or sexual activity until seen by physician. NOTIFY PHYSICIAN IF YOU HAVE ANY QUESTIONS OR IF ANY OF THE FOLLOWING SYMPTOMS OCCUR: * If your perineum becomes red, swollen, or more painful than what you have expe rienced in the hospital. * If your vaginal bleeding becomes foul smelling. * If your vaginal bleeding becomes more heavy than a period or if your bleeding changes from pink to bright red. However, you may pass an occasional walnut- sized clot once or twice for the first week . * If you experience a sharp, shooting pain in you calves. * If you discover a hard, reddened area on your breast or if you experience flu- like symptoms. DIET: * Eat regular, well-balanced meals. * Drink plenty of fluids daily. Stand Alone Forms: General Discharge Information Follow-up/Referrals: Fuad Jaquez MD [Physician] - 6 Weeks Discharge Medications: Continued PNV cmb#95-ferrous fumarate-FA [] 28 mg iron- 800 mcg Tablet 1 tablet PO DAILY 30 Days Qty: 30 0RF Discontinued nifedipine 10 mg Capsule 10 mg PO Q4H Qty: 12 0RF Date of admission: 02/25/24 05:26 Primary Care Provider: PHYSICIAN NOT ON STAFF,NONSTAFF Admitting Provider: Fuad Jaquez Attending physician on admission: Fuad Jaquez Condition: Stable
== END 2024-02-25 16:05 | disposition home or self-care (01) | DRG 807 ==
LOC: ANHLDR 05:40 → ANHOB2 11:23
PROVIDERS: Admitting Provider Obstetrics & Gynecology; Visit Provider Obstetrics & Gynecology
DX: O60.14X0 Preterm labor third trimester with preterm delivery third trimester, not applicable or unspecified (principal); Z37.0 Single live birth; O70.0 First degree perineal laceration during delivery; Z3A.36 36 weeks gestation of pregnancy
CPT/HCPCS: 36415; 85025; 86592; 86703; 86762; 86850; 86900; 86901; A9270; G0432; J0290; J2590; J3010

== ENCOUNTER 2025-08-08 15:58 | Emergency (ER) | payer OTHER, SELFPAY ==
[2025-08-08 16:07] VITALS: BP 99/68; PULSE 82; RESP 16; TEMP 36.6; O2SAT 100
--- NOTE | 2025-08-08 17:04 | ED.EAR ---
HPI - Ear Problem General Chief complaint: Ear Stated complaint: Ear Pain Time Seen by Provider: 08/08/25 16:00 Source: patient and RN notes reviewed Mode of arrival: ambulatory Limitations: no limitations History of Present Illness HPI Narrative: 29-year-old female presents Express Care complaining bilateral ear pain. The left ear pain started 5 days ago and today her right ear started to hurt. Patient denies any upper respiratory symptoms, fevers, eczema chills, cough, nausea vomiting, diarrhea, dizziness, lightheadedness, chest pain, difficulty breathing, or any other symptoms. Patient has done anything to help with symptoms. Related Data Allergies Allergy/AdvReac Type Severity Reaction Status Date / Time banana bag Allergy Swelling Uncoded 02/22/24 02:14 of Lip/Tongue/Throat Review of Systems Review of Systems: CONSTITUTIONAL: Denies fever, body aches, chills, or sweats. EYES: Denies visual changes, redness, or discharge. ENT: Denies rhinorrhea, congestion, sore throat, tinnitus. Positive for otalgia. CARDIOVASCULAR: Denies chest pain, palpitations, dizziness, lightheadedness, or edema. RESPIRATORY: Denies cough, wheezing, or dyspnea. GASTROINTESTINAL: Denies abdominal pain, nausea, vomiting, or diarrhea. GENITOURINARY: Denies dysuria or hematuria. SKIN: Denies rash or itching. MUSCULOSKELETAL: Denies back pain, joint pain, or myalgia. NEUROLOGIC: Denies headache, numbness, or weakness. PSYCHIATRIC: Denies anxiety or depression. All other systems reviewed are negative, except as documented in HPI. [facility] Past Medical History Medical History and not yet delivered Overweight (BMI 25.0-29.9) Family History Family History Other No pertinent family history Social History Social History Smoking status: Never smoker Second hand tobacco smoke exposure: No Substance use: never Do You Feel Safe in your Home?: Yes Lack of Transportation: No Lack of Food: Never True Current Housing: I Have Housing Concerned About Future Housing: No Difficulty Paying Gas/Electric Bills: No Difficulty Paying for Meds: No Currently Unemployed: No Education: High School Diploma/GED Difficulty w/ Childcare or Family Care: No Gender identity (if verbalized by the patient): Female Spiritual care concerns: No Comments At the time of my signature, I reviewed and agree with the nursing past medical, surgical, social, and family history. There is no relevant family history pertinent to the patient complaint. Exam Narrative: GENERAL: This is a well-nourished, well-developed adult, in no apparent distress. They are non ill-appearing, nontoxic appearing. HEAD: normocephalic, atraumatic. EYES: Sclera clear/white. Conjunctiva normal. Vision is grossly intact. Extraocular movements intact EARS: External ears normal, auditory canals are erythematous. No exudate. Bilateral Tragal tenderness. No mastoid tenderness. TMs normal without perforation. Hearing grossly intact. NOSE: External nose normal with no obvious nasal discharge, nasal turbinates without redness, no rhinorrhea. THROAT: Mucous membranes moist, posterior pharynx clear, without erythema or swelling. Uvula midline. NECK: Neck supple, non-tender without lymphadenopathy, masses or thyromegaly. CARDIOVASCULAR: Regular rate and rhythm without murmurs, gallops, or rubs. RESPIRATORY: Clear to auscultation. Breath sounds equal bilaterally. No wheezes, rales, or rhonchi. SKIN: warm, Dry, intact with no suspicious lesions or rash, good texture and turgor. NEURO: awake, alert, and oriented to person, place and time. There were no obvious focal neurologic abnormalities. EXTREMITIES: No joint tenderness, effusion, or edema noted. BACK: Nontender without deformity. No CVA tenderness. Course Course Emergency Course: Portions of this record may have been created with voice recognition software Level of Care: Express Care Visit Vital Signs Vital signs: Vital Signs Temperature 97.9 F 08/08/25 16:07 Pulse Rate 82 08/08/25 16:07 Respiratory Rate 16 08/08/25 16:07 Blood Pressure 99/68 L 08/08/25 16:07 Pulse Oximetry 100 08/08/25 16:07 Oxygen Delivery Room Air 08/08/25 16:07 Temperature 97.9 F 08/08/25 16:07 Pulse Rate 82 08/08/25 16:07 Respiratory Rate 16 08/08/25 16:07 Blood Pressure 99/68 L 08/08/25 16:07 Pulse Oximetry 100 08/08/25 16:07 Oxygen Delivery Room Air 08/08/25 16:07 Reviewed Medical Decision Making MDM Narrative Medical decision making narrative: Patient has bilateral otitis externa, will treat with ofloxacin ear drops. Discussed physical exam findings. Advised supportive measures and signs/symptoms to go to the ER. Pt is appropriate for outpt treatment and f/u. Differential Diagnosis Differential Diagnosis: Otitis media, otitis externa, upper respiratory infection. Vital Signs Vital Signs: Vital Signs Temperature 97.9 F 08/08/25 16:07 Pulse Rate 82 08/08/25 16:07 Respiratory Rate 16 08/08/25 16:07 Blood Pressure 99/68 L 08/08/25 16:07 Pulse Oximetry 100 08/08/25 16:07 Oxygen Delivery Room Air 08/08/25 16:07 Temperature 97.9 F 08/08/25 16:07 Pulse Rate 82 08/08/25 16:07 Respiratory Rate 16 08/08/25 16:07 Blood Pressure 99/68 L 08/08/25 16:07 Pulse Oximetry 100 08/08/25 16:07 Oxygen Delivery Room Air 08/08/25 16:07 Critical Care Time Critical Care Time Critical Care Time: No Discharge Plan Discharge Clinical Impression: Otitis externa Qualifiers: Otitis externa type: diffuse Chronicity: acute Laterality: bilateral Qualified Code(s): H60.313 - Diffuse otitis externa, bilateral Patient Disposition: Home Condition: Stable Instructions: Antibiotic Form, How to Use Ear Drops (ED), Ear Infection (ED) Additional Instructions: Take antibiotic drops as directed. Tylenol and ibuprofen every 8 hours as needed to reduce fever, pain, follow instructions on the bottle Avoid water, headphones, or anything into the ear for one week Follow up with your personal physician for further evaluation and treatment within 3-5days. If your symptoms persist, change or worsen significantly, go to the emergency department for further evaluation. Patient Language: Citizen Of [place] Prescriptions: New ofloxacin 0.3 % drops 10 drp EACH EAR DAILY 7 Days Qty: 10 0RF No Action PNV no.95-ferrous fumarate-FA [] 28 mg iron- 800 mcg Tablet 1 tablet PO DAILY 30 Days Qty: 30 0RF Follow-up/Referrals: PHYSICIAN,COVER MAT MACHINE OPERATOR [Primary Care Provider, Internal Medicine] Time of Disposition: :14
== END 2025-08-08 16:18 | disposition home or self-care (01) ==
DX: H60.313 Diffuse otitis externa, bilateral (principal)
CPT/HCPCS: 99213; G0463